=== PATIENT | female | born 1995 | race Caucasian/White ===

== ENCOUNTER 2024-03-19 22:31 | Emergency (ER) | payer OTHER, SELFPAY ==
--- NOTE | 2024-03-19 | ECG_ITS ---
Test Reason : chest pain Blood Pressure : / mmHG Vent. Rate : 120 BPM Atrial Rate : 120 BPM P-R Int : 168 ms QRS Dur : 076 ms QT Int : 292 ms P-R-T Axes : 061 062 -41 degrees QTc Int : 412 ms Sinus tachycardia Nonspecific T wave abnormality Abnormal ECG No previous ECGs available Referred By: Generic ED Physician Electronically Signed By:Francisco Holt
[2024-03-19 22:36] VITALS: BP 152/89; PULSE 127; RESP 18; TEMP 36.7; O2SAT 97; BMI 24.8
[2024-03-19 22:55] LABS: MANUAL DIFF FLAG NO
[2024-03-19 22:56] LABS: Basophils Absolute Auto 0.1 X10*3/uL (0.0-0.2); Basophils Percent Auto 0.7 % (0-2); Eosinophils Absolute Auto 0.2 X10*3/uL (0.0-0.4); Eosinophils Percent Auto 2.3 % (0-4); Hematocrit 38.5 % (37.0-47.0); Hemoglobin 13.5 g/dl (12.0-16.0); Imm Gran Abs Auto 0.02 X10*3/uL (0.00-0.03); Imm Gran Pct Auto 0.3 % (0.0-0.4); Lymphocytes Absolute Auto 2.8 X10*3/uL (1.2-4.9); Lymphocytes Percent Auto 39.6 % (20-40); Mean Corpuscular HGB Conc 35.1 g/dl (31.0-35.0); Mean Corpuscular Volume 85.6 fL (80.0-98.0); Mean Platelet Volume 8.4 fL (9.4-12.3); Monocytes Absolute Auto 0.7 X10*3/uL (0.1-1.2); Monocytes Percent Auto 9.4 % (2-11); Neutrophils Absolute Auto 3.4 x10*3/uL (2.0-8.3); Neutrophils Percent Auto 47.7 % (45-73); Platelet Count 277 X10*3/uL (160-400); Red Cell Distribution Width 11.9 % (11.0-16.0); White Blood Count 7.1 X10*3/uL (4.8-10.8)
[2024-03-19 23:11] LABS: Alanine Aminotransferase 12 U/L (0-31); Albumin Level 4.4 g/dL (3.5-5.0); Alkaline Phosphatase 59 U/L (39-117); Anion Gap 11 (12-20); Aspartate Amino Transferase 20 U/L (5-31); Bilirubin Total 0.3 mg/dL (0.0-1.0); Blood Urea Nitrogen 10 mg/dL (9-16); Calcium 9.8 mg/dL (8.4-10.2); Carbon Dioxide 26 mmol/L (22-29); Chloride 108 mmol/L (96-108); Creatinine Clr Calc Pharmacy 106.8; Estimated Glomerular Filt Rate > 60; Glucose Random 100 mg/dL (60-115); Potassium 4.1 mmol/L (3.3-5.1); Sodium 141 mmol/L (135-145)
[2024-03-19 23:15] LABS: Troponin-I High Sensitivity < 2.7 ng/L (<3.5-17.0)
--- NOTE | 2024-03-20 01:03 | ED.ARRPALP ---
HPI - Arrhythmia/Palpitations General Chief Complaint: Arrhythmia/Palpitations Stated Complaint: chest pain Time Seen by Provider: 03/20/24 01:01 Source: patient Mode of arrival: ambulatory Limitations: no limitations History of Present Illness ED Provider: roxana HPI narrative: Patient's history of hypersomnia and ADHD on Ritalin complaining of episodes of palpitation for last 3 days getting premature heartbeats in her role feel short of breath with that heart rate maximum was 122 no syncope patient has increased stress with anxiety felt short of breath on arrival patient's heart rate was in 90s sinus rhythm Related Data Allergies Allergy/AdvReac Type Severity Reaction Status Date / Time cat dander [cats] Allergy Itching Verified 03/19/24 22:37 Seasonal Allergies Allergy Itching Verified 03/19/24 22:37 Review of Systems Review of Systems: Yes all other systems are reviewed and are negative [facility] Social History Social History Smoked in Last 30 Days: No Use of substances other than those prescribed or required for medical reasons: No Advance Directives: No Advance Directives Information Provided: Yes Do you have a plan to hurt others: No Plan Patient : No Physical Exam Vital Signs: Vital Signs: Last Vital Signs Temp 97.6 F 03/20/24 02:19 Pulse 91 03/20/24 02:19 Resp 14 03/20/24 02:19 BP 127/83 03/20/24 02:19 Pulse Ox 98 03/20/24 02:19 O2 Del Method Room Air 03/20/24 02:19 BMI result Body Mass Index 24.8 Appearance: Alert. Oriented X3. No acute distress. Eyes: PERRLA, No Nystagmus ENT: Pharynx normal. Oral Mucosa moist Neck: Normal inspection. Neck supple. CVS: Normal heart rate and rhythm. Pulses normal. Respiratory: No respiratory distress. Equal air entry bilateral, no wheezing/rales/rhonchi Abdomen: Soft and nontender. Bowel sounds are present, no mass palpable, no CVA tenderness Skin: Skin warm and dry. Normal skin color. Normal skin turgor. Extremities: No lower extremity edema. No calf tenderness Neuro: Oriented X 3. No motor deficit. Medical Decision Making Medical Decision Making [facility] Narrative: Patient with premature beats with tachycardia heart rate ranging between 100 and 120 with no significant drop in blood pressure on standing on Ritalin with increased stress likely the cause of premature beats. EKG with sinus tachycardia with heart rate of 120 beats per minute Differential Diagnosis Differential Diagnoses: The differential diagnosis associated with the presentation includes PACs/premature beats/POTS Lab Data [facility] Lab Attestation statement: I reviewed the patient's lab results. 03/19/24 22:49 03/19/24 22:49 Labs: Lab Results 03/19/24 Range/Units 22:49 WBC 7.1 (4.8-10.8) X10*3/uL RBC 4.50 (4.20-5.50) X10*6/uL Hgb 13.5 (12.0-16.0) g/dl Hct 38.5 (37.0-47.0) % MCV 85.6 (80.0-98.0) fL MCH 30.0 (27.0-33.0) pg MCHC 35.1 H (31.0-35.0) g/dl RDW 11.9 (11.0-16.0) % Plt Count 277 (160-400) X10*3/uL MPV 8.4 L (9.4-12.3) fL Immature Gran % (Auto) 0.3 (0.0-0.4) % Neut % (Auto) 47.7 (45-73) % Lymph % (Auto) 39.6 (20-40) % [place] % (Auto) 9.4 (2-11) % Eos % (Auto) 2.3 (0-4) % Baso % (Auto) 0.7 (0-2) % Lymph # (Auto) 2.8 (1.2-4.9) X10*3/uL [place] # (Auto) 0.7 (0.1-1.2) X10*3/uL Eos # (Auto) 0.2 (0.0-0.4) X10*3/uL Baso # (Auto) 0.1 (0.0-0.2) X10*3/uL Abs Immat Gran (auto) 0.02 (0.00-0.03) X10*3/uL Absolute Neuts (auto) 3.4 (2.0-8.3) x10*3/uL Absolute Nucleated RBC 0.000 (0.0-0.012) X10*3/uL Nucleated RBC % (auto) 0.0 (0.0-0.2) /100WBC Sodium 141 (135-145) mmol/L Potassium 4.1 (3.3-5.1) mmol/L Chloride 108 (96-108) mmol/L Carbon Dioxide 26 (22-29) mmol/L Anion Gap 11 L (12-20) BUN 10 (9-16) mg/dL Creatinine 0.71 (0.5-1.4) mg/dL Estim Creat Clear Calc 106.8 Estimated GFR > 60 Random Glucose 100 (60-115) mg/dL Calcium 9.8 (8.4-10.2) mg/dL Total Bilirubin 0.3 (0.0-1.0) mg/dL AST 20 (5-31) U/L ALT 12 (0-31) U/L Alkaline Phosphatase 59 (39-117) U/L Troponin I High Sens < 2.7 (<3.5-17.0) ng/L Total Protein 7.0 (6.5-8.0) g/dL Albumin 4.4 (3.5-5.0) g/dL Independent Interpretation I performed an independent interpretation of an: EKG Interpretation: Sinus tachycardia with heart rate 120 beats per minute normal interval normal axis acute STT wave changes no acute ischemia Discharge Plan Discharge Clinical Impression: Sinus tachycardia, Atrial premature beats Patient Disposition: Home, Self-Care Instructions: Premature Atrial Contractions (ED), Tachycardia (ED) Additional Instructions: Drink plenty of fluids Follow up with physical therapy asst/PCP for Holter monitoring Avoid caffeine drinks Discussed case with your psychiatrist for the use of Ritalin when you have palpitations Referrals: Lars Ba MD [Physician] - 2 weeks Interventions: ED Discharge Assessment Last Done: 03/20/24 02:19 Discharge Date/Time: 03/20/24 02:20 Print Language: Japanese
[2024-03-20 01:45] VITALS: BP 114/73; BP 117/75; BP 127/83; PULSE 89; PULSE 91; PULSE 92
--- NOTE | 2024-03-20 01:46 | PC.NURSE ---
pt from home, a&ox4, respirations even and unlabored. pt reporting onset of palpitations and tachycardia starting Tuesday, pt reports it subsides and comes back throughout the day, often when she states she is sitting. pt reports chest pain when these palpitations occur. per provider order, orthos obtained at this time. vss.
[2024-03-20 02:19] VITALS: BP 127/83; PULSE 91; RESP 14; TEMP 36.4; O2SAT 98
== END 2024-03-20 02:20 | disposition home or self-care (01) ==
PROVIDERS: Emergency Provider Internal Medicine
DX: I49.9 Cardiac arrhythmia, unspecified (principal); R00.2 Palpitations; R00.0 Tachycardia, unspecified; I49.1 Atrial premature depolarization; Z79.899 Other long term (current) drug therapy
CPT/HCPCS: 36415; 80053; 84484; 85025; 93005; 99283; 99285

== ENCOUNTER → 2024-03-19 22:38 | Outpatient (BNV) | payer OTHER, SELFPAY | PROVIDERS: Emergency Provider Internal Medicine; Visit Provider Internal Medicine Cardiovascular Disease | DX: R94.31 Abnormal electrocardiogram [ECG] [EKG] (principal); R07.9 Chest pain, unspecified | CPT/HCPCS: 93010 ==

== ENCOUNTER 2024-03-23 01:06 | Emergency (ER) | payer OTHER, SELFPAY ==
--- NOTE | 2024-03-23 | ECG_ITS ---
Test Reason : SOB/DIZZINESS Blood Pressure : / mmHG Vent. Rate : 081 BPM Atrial Rate : 081 BPM P-R Int : 128 ms QRS Dur : 086 ms QT Int : 384 ms P-R-T Axes : 021 066 036 degrees QTc Int : 446 ms Normal sinus rhythm Normal ECG When compared with ECG of 19-MAR-2024 22:38, Nonspecific T wave abnormality has replaced inverted T waves in Inferior leads Nonspecific T wave abnormality no longer evident in Lateral leads Referred By: Generic ED Physician Electronically Signed By:Francisco Holt
--- NOTE | ~2024-03-23 | XR_ITS ---
EXAMINATION: XR CHEST CLINICAL INFORMATION: Cough and shortness of breath. COMPARISON: None available. TECHNIQUE: Frontal view of the chest was obtained. FINDINGS: No significant abnormality is noted involving the heart, lungs, mediastinum, bony thorax or soft tissues. XR/XR chest 1V IMPRESSION: Unremarkable examination. Electronically signed by: Pradeep De La Paz MD 03/23/2024 03:55 AM EDT RP
[2024-03-23 01:14] VITALS: BP 112/77; PULSE 80; RESP 16; TEMP 36.6; O2SAT 97; BMI 25.9
[2024-03-23 02:25] LABS: Influenza A PCR NEGATIVE (Negative); Influenza B PCR NEGATIVE (Negative); Resp Syncy Virus RNA Qual PCR NEGATIVE (Negative); SARS COV2 PCR INHOUSE NEGATIVE (Negative)
--- NOTE | 2024-03-23 02:27 | ED_ITS ---
HPI - General Adult General Chief complaint: Upper Respiratory Symptoms Stated complaint: SOB, spins, dry cough, hypersomnia 2 wk ago Time Seen by Provider: 03/23/24 01:52 Source: patient, family and EMS Mode of arrival: EMS Limitations: no limitations History of Present Illness ED Provider: DR. Vizcarra HPI narrative: 28-year-old female with history of idiopathic hypersomnia patient has been treated with xywav which is relatively new medication for the past 2 weeks with known side effect of the medicine [employer] depressant patient came in for evaluation of chest discomfort and shortness of breath. Related Data Allergies Allergy/AdvReac Type Severity Reaction Status Date / Time cat dander [cats] Allergy Itching Verified 03/23/24 01:16 Seasonal Allergies Allergy Itching Verified 03/23/24 01:16 Review of Systems 2 Review of Systems: All other systems are reviewed and are negative Constitutional: Reports as per HPI and Reports no additional constitutional complaints Eyes: Reports as per HPI and Reports no additional eye complaints Reports system reviewed and no additional complaints, except as documented Cardiovascular: Reports as per HPI and Reports no additional cardiovascular complaints Respiratory: Reports as per HPI and Reports no additional respiratory complaints Gastrointestinal: Reports as per HPI and Reports no additional gastrointestinal complaints Genitourinary: Reports no additional female genitourinary complaints Musculoskeletal: Reports no additional musculoskeletal complaints Skin/Breast: Reports system reviewed and no additional complaints, except as docu Psychiatric: Reports no additional psychiatric complaints Endocrine: Reports no additional endocrine complaints Hematologic/Lymphatic: Reports no additional hematologic/lymphatic complaints Allergic/Immunologic: Reports no additional allergic/immunologic complaints Reports system reviewed and no additional complaints, except as documented and Reports Abnormal speech present [facility] Social History Social History Advance Directives: No Advance Directives Information Provided: No Do you have a plan to hurt others: No Plan Physical Exam ED Vital Signs: Vital Signs - 24 hr 03/23/24 01:14 03/23/24 04:12 Temperature 98 F 98.1 F Pulse Rate 80 72 Respiratory Rate 16 15 Blood Pressure 112/77 101/60 Pulse Oximetry 97 97 Oxygen Delivery Method Room Air Room Air BMI result Body Mass Index 25.9 Vital signs have been reviewed and appear to be correct. Blood pressure elevated. Heart rate normal. Respiratory rate normal. Temperature normal. Oxygen saturation normal. Appearance: Alert. Oriented X3. No acute distress. Head: Normal external exam. Normocephalic. Atraumatic. No Wood signs noted. No raccoon eyes noted Eyes: PERRLA. EOMI. Conjunctiva and sclera normal. Eyelids normal. ENT: TM's Normal. Pharynx normal. Uvula midline. Moist mucous membranes. No trismus noted. No drooling noted. No muffled voice noted. Neck: Normal inspection. Neck supple. FROM. No adenopathy. Thyroid Normal. No meningeal signs. No neck mass noted. CVS: Normal heart rate and rhythm. Heart sound normal. No murmurs noted. Pulses normal throughout. Respiratory: No respiratory distress. Painless inspiration. Breath sounds normal. No wheezes/rales/rhonchi noted. Chest nontender. No accessory muscle usage noted or decreased air movement noted. Abdomen: Soft and nontender. Bowel sounds normal in all 4 quadrants. No distention noted. No organomegaly noted. No visible injury noted. Back: No CVA tenderness. Full range of motion noted. Skin: Skin warm and dry. Normal skin color. Normal skin turgor. No rashes/lesions/lacerations noted. Extremities: No lower extremity edema. Extremities exhibit normal range of motion. Extremities nontender. Neuro: Oriented X 3. Cranial nerve exam: II-XII are grossly intact No motor deficit. No sensory deficit. Reflexes normal. Course Reevaluation(s) Reevaluation #1: 28-year-old female came in for evaluation of shortness breath and chest discomfort, patient was evaluated in the emergency department 2 days ago for similar symptoms started on new medication for idiopathic hypersomnia that patient noticed after she started on those medication she started have all this side-effect. Instructed the patient to stop taking Xywav and discussed with her PCP for alternatives to manage her hypersomnia condition. Time: 05:38 Medical Decision Making Differential Diagnosis Differential Diagnoses: The differential diagnosis associated with the presentation includes (ACS, pneumonia, pleural effusion, pneumothorax,Xywav side effect,) Admission/Observation Consideration of admission/observation: Escalation of care including admission/observation considered Lab Data MDM Lab Attestation statement: I reviewed the patient's lab results. 03/23/24 02:33 03/23/24 02:33 Labs: Lab Results 10/25/24 10/25/24 Range/Units 01:32 02:33 WBC 5.9 (4.8-10.8) X10*3/uL RBC 4.29 (4.20-5.50) X10*6/uL Hgb 13.0 (12.0-16.0) g/dl Hct 36.8 L (37.0-47.0) % MCV 85.8 (80.0-98.0) fL MCH 30.3 (27.0-33.0) pg MCHC 35.3 H (31.0-35.0) g/dl RDW 12.2 (11.0-16.0) % Plt Count 266 (160-400) X10*3/uL MPV 8.3 L (9.4-12.3) fL Immature Gran % (Auto) 0.2 (0.0-0.4) % Neut % (Auto) 58.1 (45-73) % Lymph % (Auto) 28.5 (20-40) % [place] % (Auto) 10.8 (2-11) % Eos % (Auto) 1.9 (0-4) % Baso % (Auto) 0.5 (0-2) % Lymph # (Auto) 1.7 (1.2-4.9) X10*3/uL [place] # (Auto) 0.6 (0.1-1.2) X10*3/uL Eos # (Auto) 0.1 (0.0-0.4) X10*3/uL Baso # (Auto) 0.0 (0.0-0.2) X10*3/uL Abs Immat Gran (auto) 0.01 (0.00-0.03) X10*3/uL Absolute Neuts (auto) 3.5 (2.0-8.3) x10*3/uL Absolute Nucleated RBC 0.000 (0.0-0.012) X10*3/uL Nucleated RBC % (auto) 0.0 (0.0-0.2) /100WBC Sodium 145 (135-145) mmol/L Potassium 3.8 (3.3-5.1) mmol/L Chloride 110 H (96-108) mmol/L Carbon Dioxide 27 (22-29) mmol/L Anion Gap 12 (12-20) BUN 8 L (9-16) mg/dL Creatinine 0.71 (0.5-1.4) mg/dL Estim Creat Clear Calc 109.0 Estimated GFR > 60 Random Glucose 93 (60-115) mg/dL Calcium 9.3 (8.4-10.2) mg/dL Total Bilirubin 0.3 (0.0-1.0) mg/dL Direct Bilirubin 0.1 (0.0-0.5) mg/dL AST 20 (5-31) U/L ALT 11 (0-31) U/L Alkaline Phosphatase 56 (39-117) U/L Troponin I High Sens < 2.7 (<3.5-17.0) ng/L Total Protein 6.8 (6.5-8.0) g/dL Albumin 4.3 (3.5-5.0) g/dL Lipase 28 (8-78) U/L Influenza Type A (PCR) NEGATIVE (Negative) Influenza Type B (PCR) NEGATIVE (Negative) RSV RNA Qual (PCR) NEGATIVE (Negative) SARS-CoV-2 RNA (RT-PCR) NEGATIVE (Negative) Independent Interpretation I performed an independent interpretation of an: Plain X-Ray (Chest: No acute intrathoracic pathology.) Radiology Impression Discussion of test interpretation with radiology: I have reviewed the radiologist's reading. Discharge Plan Discharge Clinical Impression: Chest pain, Drug side effects Patient Disposition: Home, Self-Care Instructions: Adverse Drug Reaction (ED) Additional Instructions: Start taking Xywav and discuss with your primary physician alternative for the medication. Print Language: Estonian
[2024-03-23 02:38] LABS: MANUAL DIFF FLAG NO
[2024-03-23 02:39] LABS: Basophils Percent Auto 0.5 % (0-2); Eosinophils Absolute Auto 0.1 X10*3/uL (0.0-0.4); Eosinophils Percent Auto 1.9 % (0-4); Hematocrit 36.8 % (37.0-47.0); Imm Gran Abs Auto 0.01 X10*3/uL (0.00-0.03); Imm Gran Pct Auto 0.2 % (0.0-0.4); Lymphocytes Absolute Auto 1.7 X10*3/uL (1.2-4.9); Lymphocytes Percent Auto 28.5 % (20-40); Mean Corpuscular HGB Conc 35.3 g/dl (31.0-35.0); Mean Corpuscular Hemoglobin 30.3 pg (27.0-33.0); Mean Corpuscular Volume 85.8 fL (80.0-98.0); Mean Platelet Volume 8.3 fL (9.4-12.3); Monocytes Absolute Auto 0.6 X10*3/uL (0.1-1.2); Monocytes Percent Auto 10.8 % (2-11); Neutrophils Absolute Auto 3.5 x10*3/uL (2.0-8.3); Neutrophils Percent Auto 58.1 % (45-73); Platelet Count 266 X10*3/uL (160-400); Red Blood Count 4.29 X10*6/uL (4.20-5.50); Red Cell Distribution Width 12.2 % (11.0-16.0); White Blood Count 5.9 X10*3/uL (4.8-10.8)
[2024-03-23 02:57] LABS: Alanine Aminotransferase 11 U/L (0-31); Albumin Level 4.3 g/dL (3.5-5.0); Alkaline Phosphatase 56 U/L (39-117); Anion Gap 12 (12-20); Aspartate Amino Transferase 20 U/L (5-31); Bilirubin Direct 0.1 mg/dL (0.0-0.5); Bilirubin Total 0.3 mg/dL (0.0-1.0); Blood Urea Nitrogen 8 mg/dL (9-16); Calcium 9.3 mg/dL (8.4-10.2); Carbon Dioxide 27 mmol/L (22-29); Chloride 110 mmol/L (96-108); Estimated Glomerular Filt Rate > 60; Glucose Random 93 mg/dL (60-115); Lipase 28 U/L (8-78); Potassium 3.8 mmol/L (3.3-5.1); Sodium 145 mmol/L (135-145); Total Protein 6.8 g/dL (6.5-8.0)
[2024-03-23 03:06] LABS: Troponin-I High Sensitivity < 2.7 ng/L (<3.5-17.0)
[2024-03-23 04:12] VITALS: BP 101/60; PULSE 72; RESP 15; TEMP 36.7; O2SAT 97
[2024-03-23 05:45] VITALS: BP 101/60; PULSE 72; RESP 15; TEMP 36.7; O2SAT 97
== END 2024-03-23 05:46 | disposition home or self-care (01) ==
PROVIDERS: Emergency Provider Emergency Medicine
DX: R07.89 Other chest pain (principal); R06.02 Shortness of breath; R05.9 Cough, unspecified; G47.10 Hypersomnia, unspecified; Z03.818 Encounter for observation for suspected exposure to other biological agents ruled out; Z79.899 Other long term (current) drug therapy
CPT/HCPCS: 0241U; 36415; 71045; 80048; 80076; 83690; 84484; 85025; 93005; 99284; 99285

== ENCOUNTER → 2024-03-23 01:22 | Outpatient (BNV) | payer OTHER, SELFPAY | PROVIDERS: Emergency Provider Emergency Medicine; Visit Provider Internal Medicine Cardiovascular Disease | DX: R42 Dizziness and giddiness (principal); R06.02 Shortness of breath | CPT/HCPCS: 93010 ==

== ENCOUNTER → 2024-06-27 14:40 | Outpatient (BNVA) | payer OTHER, SELFPAY | PROVIDERS: Visit Provider Internal Medicine Cardiovascular Disease | DX: R00.0 Tachycardia, unspecified (principal) | CPT/HCPCS: 93005 ==

== ENCOUNTER → 2024-07-09 14:53 | Outpatient (BNV) | payer OTHER, SELFPAY | PROVIDERS: Visit Provider Internal Medicine Cardiovascular Disease | DX: R00.0 Tachycardia, unspecified (principal) | CPT/HCPCS: 93244 ==

== ENCOUNTER → 2024-07-09 15:02 | Outpatient (REF) | payer OTHER, SELFPAY ==
--- NOTE | 2024-07-09 14:53 | HM_ITS ---
Conclusion: 1. Patient was monitored for total period 3 days 2. Baseline was normal sinus rhythm with average heart of 75 beats per minute 3. There were no significant pauses or arrhythmias noted 4. Patient marked the counter 7 times, correlating with sinus rhythm MTDD
--- OUTSIDE RECORDS SUMMARY | 2024-07-09 16:13 | XMS_ITS | Clinical Summary ---
Author Organization [facility] Address [address] [place] [address] [place] [address] Phone Care Team Providers Care Clinical Registered Nurse Name Role Phone Chey Harman MD Primary Care Provider [phone] Allergies No known active allergies Medications acyclovir (ZOVIRAX) 400 mg tablet Take 1 tablet (400 mg total) by mouth 2 (two) times a day. 8 Active levonorgestreL (Mirena) 21 mcg/24 hours (8 yrs) 52 mg IUD Activ e lurasidone (Latuda) 40 mg tablet Take 1 tablet (40 mg total) by mouth 1 (one) time each day. Active methylphenidate (Ritalin) 5 mg tablet Take 1 tablet (5 mg total) by mouth 2 (two) times a day. Active sodium chloride 1 gram tablet Take 1 tablet every day by miscell. route for 30 days. 3 Active traZODone (DESYREL) 100 mg tablet TAKE 1 TABLET BY MOUTH EVERY DAY AT BEDTIME FOR 90 DAYS 1 Active fluticasone propionate (Flonase Allergy Relief) 50 mcg/actuation nasal spray [place] 1 spray every day by intranasal route for 30 days. 4 Active omeprazole (PriLOSEC) [address] capsule Take 1 capsule (40 mg total) by mouth 1 (one) time each day. 3 Active ondansetron (Zofran) 4 mg tablet Take 1 tablet (4 mg total) by mouth. 4 Active cyclobenzaprine (FLEXERIL) 10 mg tabletIndicatio ns:Chronic pain of multiple joints,Myalgia, Chronic bilateral low back pain without sciatica Take 1 tablet (10 mg total) by mouth at bedtime. 90 each 4 Active gabapentin (NEURONTIN) 300 mg capsuleIndicati ons:Chronic pain of multiple joints,Myalgia, Chronic bilateral low back pain without sciatica TAKE 1 CAPSULE BY MOUTH EVERY MORNING AFTER BREAKFAST , AND 1 CAPSULE AFTER LUNCH, AND 2 CAPSULES AT BEDTIME 360 capsule 4 Active Active Problems Problem Noted Date Diagnosed Date Chronic pain of multiple joints 01/05/2023 Assessment & Plan (11/03/2023 10:19 AM EDT): In December 2022, Ms. Bro reported all over joint pains for the last two years with periodic swelling in hands. She reports back pain but manageable. No synovitis on exam, mild SI joint tenderness noted. Recent labs November 2022 reported RF/CCP negative. ESR/CRP normal and SONYA and multiplex negative. She has no psoriasis, IBD, uveitis history. I discussed with no significant swelling and normal inflammatory markers, negative RF/CCP, inflammatory arthritis/RA is less likely. She has some hypermobility in elbows, discussed to continue cautious use of NSAIDs/Tylenol as needed, ROM exercises, braces. Discussed SI joint x-ray, she will let us know if back pain worsening. ESR/CRP were normal, ank spon might be less likely. Due to persistent symptoms discussed repeating labs in 4-6 months and she agreed. Labs on April 12, 2023- SONYA negative. SONYA multiplex negative. Rheumatoid factor, CCP antibody normal. ESR, CRP, CK normal. Labs are unremarkable for inflammatory arthritis and autoimmune diseases. Joint symptoms present but stable. No synovitis on exam. Previous labs in November and March 2023 reported normal ESR/CRP and negative RF/CCP. With no synovitis and normal labs inflammatory thrice may be less likely. She is currently taking gabapentin and cyclobenzaprine for possibly myofascial pain/fibromyalgia and has noted some improvement. Symptoms stable at present. To continue gabapentin daily and cyclobenzaprine as needed. Side effects provide discussed. Advised to continue exercises and cautious use of NSAIDs/Tylenol as needed. Please move to [place] next month, will let us know where to send records. Assessment & Plan (04/26/2023 6:06 PM EST): In December 2022, Ms. Bro reported all over joint pains for the last two years with periodic swelling in hands. She reports back pain but manageable. No synovitis on exam, mild SI joint tenderness noted. Recent labs November 2022 reported RF/CCP negative. ESR/CRP normal and SONYA and multiplex negative. She has no psoriasis, IBD, uveitis history. I discussed with no significant swelling and normal inflammatory markers, negative RF/CCP, inflammatory arthritis/RA is less likely. She has some hypermobility in elbows, discussed to continue cautious use of NSAIDs/Tylenol as needed, ROM exercises, braces. Discussed SI joint x-ray, she will let us know if back pain worsening. ESR/CRP were normal, ank spon might be less likely. Due to persistent symptoms discussed repeating labs in 4-6 months and she agreed. Labs on April 12, 2023- SONYA negative. SONYA multiplex negative. Rheumatoid factor, CCP antibody normal. ESR, CRP, CK normal. Labs are unremarkable for inflammatory arthritis and autoimmune diseases. Advised to continue exercises and cautious use of Tylenol as needed. If joint symptoms worsen, advised to contact our office for reevaluation. Continue follow with PCP. Assessment & Plan (01/05/2023 7:57 AM EDT): Ms. Bro reports all over joint pains for the last two years with periodic swelling in hands. She reports back pain but manageable. No synovitis on exam, mild SI joint tenderness noted. Recent labs November 2022 reported RF/CCP negative. ESR/CRP normal and SONYA and multiplex negative. She has no psoriasis, IBD, uveitis history. I discussed with no significant swelling and normal inflammatory markers, negative RF/CCP, inflammatory arthritis/RA is less likely. She has some hypermobility in elbows, discussed to continue cautious use of NSAIDs/Tylenol as needed, ROM exercises, braces. Discussed SI joint x-ray, she will let us know if back pain worsening. ESR/CRP were normal, ank spon might be less likely. Due to persistent symptoms discussed repeating labs in 4-6 months and she agreed. Myalgia 01/05/2023 Assessment & Plan (11/03/2023 10:18 AM EDT): In December 2022, Ms. Bro reported ongoing muscle aches all over body. She reports fatigue. No muscle weakness noted on exam. November 2022 labs reported SONYA and multiplex negative, including NIKA-1 ab. ESR/CRP normal. She reports some involuntary jerking of hands, discussed if persistent can consider neuro consult, continue PCP Follow up. She does have tender points across back and arms, discussed possible fibromyalgia. She tried gabapentin previously and reports interaction with depression/anxiety medications. Discussed light exercises and cautious use of NSAIDs/Tylenol as needed. Labs on April 12, 2023- SONYA negative. SONYA multiplex negative. Rheumatoid factor, CCP antibody normal. ESR, CRP, CK normal. She is currently taking gabapentin. Cyclobenzaprine as needed. Symptoms have improved with the gabapentin, currently stable. Myofascial pain certainly possible. Continue light exercises. Plans to move to [place] next month, will let us know where to send records. Gabapentin and cyclobenzaprine refilled today. Side effects precaution discussed. Assessment & Plan (04/26/2023 8:35 AM EST): In December 2022, Ms. Bro reported ongoing muscle aches all over body. She reports fatigue. No muscle weakness noted on exam. November 2022 labs reported SONYA and multiplex negative, including NIKA-1 ab. ESR/CRP normal. She reports some involuntary jerking of hands, discussed if persistent can consider neuro consult, continue PCP Follow up. She does have tender points across back and arms, discussed possible fibromyalgia. She tried gabapentin previously and reports interaction with depression/anxiety medications. Discussed light exercises and cautious use of NSAIDs/Tylenol as needed. Labs on April 12, 2023- SONYA negative. SONYA multiplex negative. Rheumatoid factor, CCP antibody normal. ESR, CRP, CK normal. She is currently taking gabapentin. Symptoms have improved. Myofascial pain certainly possible. Can use cyclobenzaprine if needed. Assessment & Plan (01/05/2023 8:14 AM EDT): Ms. rBo reports ongoing muscle aches all over body. She reports fatigue. No muscle weakness noted on exam. November 2022 labs reported SONYA and multiplex negative, including NIKA-1 ab. ESR/CRP normal. She reports some involuntary jerking of hands, discussed if persistent can consider neuro consult, continue PCP Follow up. She does have tender points across back and arms, discussed possible fibromyalgia. She tried gabapentin previously and reports interaction with depression/anxiety medications. Will repeat labs in 4 months. Discussed light exercises and cautious use of NSAIDs/Tylenol as needed. Chronic bilateral low back pain without sciatica 01/05/2023 Assessment & Plan (11/03/2023 10:17 AM EDT): In December 2022, Ms. Bro reported back pain since middle school, questionable scoliosis. Back pain manageable at present. On exam mild SI joint tenderness noted. Recent ESR/CRP were normal. Discussed x-rays if worsening, she will let us know. Continue ROM exercises and cautious use of NSAIDs as needed. Back symptoms present but stable. Currently takes cyclobenzaprine as needed. Plans to move to [place] next month, will let us know where to send records. Continue ROM exercises and cautious use of NSAIDs as needed. Assessment & Plan (04/26/2023 7:57 AM EST): In December 2022, Ms. Bro reported back pain since middle school, questionable scoliosis. Back pain manageable at present. On exam mild SI joint tenderness noted. Recent ESR/CRP were normal. Discussed x-rays if worsening, she will let us know. Continue ROM exercises and cautious use of NSAIDs as needed. Assessment & Plan (01/05/2023 8:00 AM EDT): Ms. Bro reports back pain since middle school, questionable scoliosis. Back pain manageable at present. On exam mild SI joint tenderness noted. Recent ESR/CRP were normal. Discussed x-rays if worsening, she will let us know. Continue ROM exercises and cautious use of NSAIDs as needed. Skin rash 01/05/2023 Assessment & Plan (11/03/2023 10:19 AM EDT): In December 2022, Ms. Bro reported on and off skin rash that is itchy, flat that comes over arms, legs, back, shoulders. Symptoms usually resolve quickly so she has not seen derm. No typical malar, discoid rash. No psoriasis. No active rashes present. November 2022 labs SONYA and multiplex negative, ESR/CRP normal. Advise close observation and repeat labs in 3 to 4 months. Labs on April 12, 2023- SONYA negative. SONYA multiplex negative. Rheumatoid factor, CCP antibody normal. ESR, CRP, CK normal. No active skin rashes present. Continue close observation. Discussed if skin rashes reappear to take pictures, can consider derm consult if needed. Assessment & Plan (04/26/2023 6:07 PM EST): In December 2022, Ms. Bro reported on and off skin rash that is itchy, flat that comes over arms, legs, back, shoulders. Symptoms usually resolve quickly so she has not seen derm. No typical malar, discoid rash. No psoriasis. No active rashes present. November 2022 labs SONYA and multiplex negative, ESR/CRP normal. Advise close observation and repeat labs in 3 to 4 months. Labs on April 12, 2023- SONYA negative. SONYA multiplex negative. Rheumatoid factor, CCP antibody normal. ESR, CRP, CK normal. No active skin rashes present. Continue close observation. Discussed if skin rashes reappear to take pictures, can consider derm consult if needed. Assessment & Plan (01/05/2023 8:04 AM EDT): Ms. Bro reports on and off skin rash that is itchy, flat that comes over arms, legs, back, shoulders. Symptoms usually resolve quickly so she has not seen derm. No typical malar, discoid rash. No psoriasis. No active rashes at present. November 2022 labs SONYA and multiplex negative, ESR/CRP normal. Discussed if skin rashes reappear to take pictures, can consider derm consult if needed. Fatigue 01/04/2023 Assessment & Plan (11/03/2023 10:19 AM EDT): In December 2022, Ms. Bro reported persistent fatigue. She also has muscle aches, joint pains. No muscle weakness or synovitis on exam. November 2022 labs reported SONYA and multiplex negative, ESR/CRP normal. Vit D was mildly low, taking supplementation. Etiology of fatigue unclear. Reports at times elevated HR and light-headedness, discussed continue PCP follow up and possible cardio consult. Labs on April 12, 2023- SONYA negative. SONYA multiplex negative. Rheumatoid factor, CCP antibody normal. ESR, CRP, CK normal. Labs are unremarkable for autoimmune diseases. Reports previously thyroid was normal. Symptoms stable. Continue sleep hygiene. Continue follow with PCP. Assessment & Plan (04/26/2023 6:07 PM EST): In December 2022, Ms. Bro reported persistent fatigue. She also has muscle aches, joint pains. No muscle weakness or synovitis on exam. November 2022 labs reported SONYA and multiplex negative, ESR/CRP normal. Vit D was mildly low, taking supplementation. Etiology of fatigue unclear. Reports at times elevated HR and light-headedness, discussed continue PCP follow up and possible cardio consult. Labs on April 12, 2023- SONYA negative. SONYA multiplex negative. Rheumatoid factor, CCP antibody normal. ESR, CRP, CK normal. Labs are unremarkable for autoimmune diseases. Continue follow with PCP. Assessment & Plan (01/05/2023 8:12 AM EDT): Ms. Bro reports persistent fatigue. She also has muscle aches, joint pains. No muscle weakness or synovitis on exam. November 2022 labs reported SONYA and multiplex negative, ESR/CRP normal. Vit D was mildly low, taking supplementation. Etiology of fatigue unclear. Reports at times elevated HR and light-headedness, discussed continue PCP follow up and possible cardio consult. We will repeat labs in 4 months. Umbilical pain 07/08/2022 01/03/2023 Overview (01/03/2023): Last Assessment & Plan: I suspect that hernia, however it also could be a skin infection that took a while to resolve. The hernia found on physical exam today. Will order CT scan abdomen and pelvis for further evaluation. We discussed potential surgery along with some of the risks and benefits. Herpes simplex type 1 infection 05/08/2021 01/03/2023 Insomnia 05/08/2021 01/03/2023 Anxiety 10/01/2020 01/03/2023 Bipolar I disorder 10/01/2020 01/03/2023 Bilateral flank pain 05/05/2017 01/03/2023 Urinary incontinence in female 12/03/2016 0 01/03/[address] 11/11/2016 01/03/2023 Overview (01/03/2023): Placed 11/11/16 Low serum vitamin D 12/16/2014 01/03/2023 Overview (01/03/2023): 12/16/14: Vit D is 22 on 12/11/14. Labwork requested by and to be reviewed by her psychiatrist. [facility] Generalized anxiety disorder 08/29/201411/2022 Encounters Date Type Department Care Team Description 06/14/2024 [facility]phone [facility] [phone] [place] [address] [place], [place] from Last 3 Months Medical History Medical History Date Comments Adhd Anxiety Depressed bipolar disorder (CMS/HCC) OCD (obsessive compulsive disorder) Family History Medical History Relation Name Comments Anxiety disorder Father Depression Father Skin cancer Father Lupus Maternal Grandmother Brain cancer Mother Breast cancer Paternal Grandmother Relation Name Status Comments Father Maternal Grandmother Mother Paternal Grandmother Social History Tobacco Use Types Packs/Day Years Used Date Smoking Tobacco: Former Cigarettes Smokeless Tobacco: Never Tobacco Cessation:Counseling Given: Not Answered Housing Instability Answer Date Recorde d Are you worried that in the next 2 months you may not have stable housing? No 11/03/2023 Food Access & Nutrition Answer Date Rec orded Do you have access to a vari ety of food including fruits and vegetables? Yes 11/03/2023 Access to Healthcare Answer Date Record ed Within the last 3 months, ho roque many times did you visit the emergency department for your medical care? 0 04/26/2023 Health Literacy Answer Date Recorded How often do you need to hav e someone help you when you read instructions, pamphlets, or other written material from your doctor or pharmacy? Never 11/03/2023 Caregiver: How often do you need to have someone help you when you read instructions, pamphlets, or other written material from your doctor or pharmacy? Not on file 11/03/2023 Financial Risk Answer Date Recorded How hard is it for you to pa y for the very basics like food, housing, medical care, and air conditioning / heating? Not very hard 11/03/2023 Transportation Answer Date Recorded Has the lack of transportati on kept you from meetings, work, or from getting things needed for daily living? No Has the lack of transportati on kept you from medical appointments or from getting medications? No 11/03/2023 Social Isolation Answer Date Recorded How often do you feel lonely or isolated from th ose around you? Never 11/03/2023 Food Risk Answer Date Recorded Within the past 12 months we worried whether our food would run out before we got money to buy more. Never true 11/03/2023 Within the past 12 months th e food we bought just didn't last and we didn't have money to get more. Never true 11/03/2023 Comments Unknown Sex and Gender Information Value Date Recorded Sex Assigned at Not on file Legal Sex Female 1:57 PM EDT Gender Identity Not on file Sexual Orientation Not on file Obstetrics History Last Filed Vital Signs Vital Sign Reading Time Taken Comments Blood Pressure 101/68 11/03/2023 8:13 AM EDT Pulse 75 11/03/2023 8:13 AM EDT Temperature 36.7 ??C (98.1 ??F) 11/03/2023 8:13 AM ED T Respiratory Rate 16 04/26/2023 8:07 AM EST Oxygen Saturation 96% 11/03/2023 8:13 AM EDT Inhaled Oxygen Concentration - - Weight 67 kg (147 lb 11.2 oz) 11/03/2023 8:13 AM EDT Height 160 cm (5' 3 ) 11/03/2023 8:13 AM EDT Body Mass Index 26.16 11/03/2023 8:13 AM EDT Plan of Treatment Health Maintenance Due Date Last Done Comments Pneumococcal Vaccine: Pediatrics (0 to 5 Years) and At-Risk Patients (6 to 64 Years) (1 of 2 - PCV) 2015 Hepatitis A Vaccines (2 of 2 - 2-dose series) 10/02/2015 04/03/2015 Meningococcal B Vacine (2 of 2 - Trumenba SCDM 2-dose series) 10/11/2016 04/13/2016 Depression Screening 12/06/2021 HIV Screening 12/06/2021 Hepatitis C Screening 12/06/2021 COVID-19 Vaccine ( season) 2024 06/11/2021, 11/21/2020, 10/24/2020 Influenza Vaccine (#1) 2024 06/11/2021, 2015 Cervical Cancer Screening: Pap Smear 09/04/2024 09/04/2021 Social Influencers of Health Screening 11/02/2024 11/03/2023 DTaP,Tdap,and Td Vaccines (6 - Td or Tdap) 10/07/2030 10/07/2020, 02/15/2008, 01/05/2006, Additional history exists HIB Vaccines Aged Out 11/27/2004 No longer eligi ble based on patient's age to complete this topic IPV Vaccines Completed 04/21/2005, 01/30, 11/27/2004 MMR Vaccines Completed 04/21/2005, 11/27/2004 Varicella Vaccines Completed 01/05/2006, 02/26/2005 Hepatitis B Vaccines Completed 03/08/2006, 01/05/2006, 02/26/2005 Meningococcal ACWY Vaccine Completed 04/03/2015, HPV Vaccines Completed 04/13/2016, 09/2014, 10/31/2012 RSV Immunization Patients Under 20 months Aged Out No longer eligible based on patient's age to complete this topic Insurance [employer] Care Teams Clinical Registered Nurse Relationship Specialty Start Date End Date Chey Harman MD [address] [facility] [address] [place] [address] PCP - General Internal Medicine 12/29/22
--- OUTSIDE RECORDS SUMMARY | 2024-07-09 16:13 | XMS_ITS | Encounter Summary ---
Author Organization [facility] Address [address] [place] [address] Care Team Providers Care Rehabilitation Specialist Name Role Phone Chey Harman MD Primary Care Provider [phone] Encounter Details Date Type Department Care Team (Late st Contact Info) Description 06/14/2024 Telephone [facility]ology Center [address] [phone] [place] [address] [place], [place] Social History Tobacco Use Types Packs/Day Years Used Date Smoking Tobacco: Former Cigarettes Smokeless Tobacco: Never Housing Instability Answer Date Recorde d Are you worried that in the next 2 months you may not have stable housing? No 11/03/2023 Food Access & Nutrition Answer Date Rec orded Do you have access to a vari ety of food including fruits and vegetables? Yes 11/03/2023 Access to Healthcare Answer Date Record ed Within the last 3 months, ho w many times did you visit the emergency [...] on file Sexual Orientation Not on file documented as of this encounter Progress Notes * Taylor De La Fuente NP - 06/14/2024 11:38 AM EST Referral placed to [facility] per patient request, thanks. * Lorelei Hoskins MA - 06/14/2024 11:12 AM EST Pt [place] and needs a referral to her new negative assembler. I have the information documented in this encounter Plan of Treatment Not on file documented as of this encounter Visit Diagnoses Not on filedocumented in this encounter Care Teams Rehabilitation Specialist Relationship Specialty Start Date End Date Chey Harman MD [address] [place] [address] PCP - General Internal Medicine 12/29/22 documented as of this encounter
== END ==
LOC: HO.CARD 15:02
PROVIDERS: Visit Provider Internal Medicine Cardiovascular Disease
DX: R00.0 Tachycardia, unspecified (principal); I49.1 Atrial premature depolarization
CPT/HCPCS: 93242

== ENCOUNTER 2024-08-28 13:05 | Outpatient (AMB) | payer OTHER, SELFPAY ==
--- NOTE | 2024-08-28 13:09 | A.OFFPC_ITS ---
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 Is last menstrual period known: No (just took the IUD out no menstrual yet) Post menopausal: No Patient : No Allergies cat dander [cats] Allergy (Verified 08/28/24 13:37) Itching Seasonal Allergies Allergy (Verified 08/28/24 13:37) Itching Medication List - Last Reconciled 08/28/24 by Fuentes Mitchell CNP comp.stocking,thigh,long,small As directed cyclobenzaprine 5 mg PO TID PRN gabapentin 400 mg PO ONCE lamotrigine (Lamictal) 25 mg PO DAILY levonorgestrel-ethinyl estrad 0.1-20 mg-mcg 1 tab PO DAILY methylphenidate HCl (Ritalin) 5 mg PO DAILY methylphenidate HCl ER (Concerta) 27 mg PO DAILY metoprolol young-hydrochlorothiaz 25-12.5 mg tabs PO naltrexone 1 mg PO Tobacco use date assessed: 08/28/24 Dental Screening Dental Screen Date: 08/28/24 Did you have a dental visit in the last 12 months?: No Did you have a dental problem in the last 6 months where you did not have access to dental care?: No Was dental information given to patient?: Yes HPI HPI Comments History of Present Illness Details 29-year-old female presents to critical access hospital care. She relocated from [place] to [facility] in 12/2023. She was evaluated and treated at [facility] on 03/20/2024 and 03/23/2024 for shortness of breath and chest discomfort. Prior PCP? - [place], [place] Last office visit/CPE - 02/2024 Last labs: - 03/23/2024 at [facility] Acute issue(s) - Reports constant nontraumatic left an d right sided ribs pain since 04/2024. Currently goes to [facility] for PT. - Reports nontraumatic pain to multiple ankles, elbows, shoulders, wrists, knees for the past 13 years. 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 She was followed by a nurse practitioner in [place]. - Urinary incontinence. She is incontine nce of urine almost every day and has been ongoing for 10 years. She was followed by a urologist in [place], [place]. She was on a medication that was discontinued due adverse reaction of dysuria. 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 Followed by [facility] sleep medicine. - Dizziness: She reports intermittent d izziness. Her former PCP questioned POTS. She is on metoprol young-hydrochlorothiazide 25-12.5 mg daily. - Borderline personality disorder: She i s on lamotrigine 25 mg daily. She notes that she has been tapering off the medication due to stable mood. Past Medical History - Palpitations, sinus tachycardia, acid reflux, IBS, headache, incontinence, fibromyalgia, imbalance, brain fog, memory loss, sinusitis, astigmatism, myopia Surgical History - None Family History - Dad: ADHD, anxiety, depression - MGM: Heart failure, pacemaker Social History - Former smoker, quit 4 years ago. Does not vape. History of vaping, quit 2 years ago. Denies recreational drug use - Has been making healthy dietary choice s. Exercises routinely. Generally sleep well Health maintenance - Last eye exam was 06/13/2024 at [facility]. She will sign a release for her PCP to obtain her ophthalmology record - Last dental visit was a years ago; enc ouraged to schedule an appointment with his dentist for routine dental care - Last Tdap was in 10/07/2020 - She is up-to-date on the flu vaccine - Last pap smear test was a year ago nae L[facility]pez Gynecology: [facility] Diet[facility] Medical History (Updated 08/28/24 @ 14:29 by Fuentes Mitchell CNP) Imbalance Memory loss Headache Incontinence Acid reflux IBS (irritable bowel syndrome) Back disorder Joint pain History of palpitations Sinusitis Family History Maternal Grandmother Pacemaker Heart failure Father ADHD Anxiety Depression Social History Household Members: Spouse Housing: Apartment Alcohol intake: never Patient Tobacco Use Status: Never used Tobacco e-Cigarette/Vaping Use: Never Used service: No Current occupational status: employed 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 1. Little interest or pleasure in doing things: several days 2. Feeling down, depressed, or hopeless: several days 3. Trouble falling or staying asleep, or sleeping too much: more than half the days 4. Feeling tired or having little energy: nearly every day 5. Poor appetite or overeating: more than half the days 6. Feeling bad about yourself - or that you are a failure or have let yourself or your family down: not at all 7. Trouble concentrating on things, such as reading the newspaper or watching television: more than half the days 8. Moving or speaking so slowly that other people could have noticed. Or the opposite - being so fidgety or restless that you have been moving around a lot more than usual: more than half the days 9. Thoughts that you would be better off or of hurting yourself in some way: not at all Total score: 13 Depression Screening Interpretation: Positive Depression Screening Done: Yes 23409 - PHQ-9 Billing: Yes Source: Developed by Drs. Kaushal Fuller, Matilde Hairston, James Webster and colleagues, with an educational casie from [employer]. Thrive Questionnaire Date Thrive assessed: 08/28/24 I am a: Patient What is your living situation today?: I have a steady place to live Within the past 12 months, did the food you bought not last and you didn't have the money to get more?: Never true Within the past 12 months, did you worry whether your food would run out before you got money to buy more?: Sometimes True Do you have trouble paying for medicines?: Yes Do you have trouble getting transportation to medical appointments?: No Do you have trouble paying your heating and electricity bill?: No Do you have trouble taking care of your child, family member or friend?: No Do you have trouble with day-to-day activities such as bathing, preparing meals, shopping, managing finances, etc.?: Yes Are you currently unemployed and looking for a job?: No Are you interested in more education?: No Please select the resources that you would like help with: Paying for medicine Currently or been in a relationship where the following occur: No concerns reported THRIVE Score: 1 AUDIT C Alcohol Use Questionnaire (AUDIT-C) 1. How often do you have a drink containing alcohol?: Never Total Score: 0 Score Reviewed/Action Taken: Yes BREANNA-7 AMB Questionnaire BREANNA-7 Date BREANNA - 7 assessed: 08/28/24 Feeling nervous, anxious, or on edge: 1 = Several days Not being able to stop or control worryin = Several days Worrying too much about different things: 2 = More than half the days Trouble relaxin = More than half the days Being so restless that it is hard to sit still: 2 = More than half the days Becoming easily annoyed or irritable: 1 = Several days Feeling afraid as if something awful might happen: 2 = More than half the days Total BREANNA-7 score (0-4 normal; 5-9 mild; 10-14 moderate; 15-21 severe): 11 Source: Developed by Drs. Kaushal Fuller, Matilde Hairston, James Webster and colleagues, with an educational casie from [employer]. BREANNA-7 Assessment Billing BREANNA-7 Assessment Tool: BREANNA-7 Assessment 69165 Review of Systems Const Details: Const Denies chills, Denies fatigue, Denies fever(s), Denies headache(s) and Denies weakness ENT Denies dizziness and Denies headache(s) Card Denies chest pain, Denies lightheadedness, Denies dyspnea and Denies other (Palpitations) Resp Denies cough, Denies dyspnea, Denies wheezing and Denies other ( shortness of breath) GI Denies abdominal pain, Denies melena, Denies hematochezia, Denies change in bowel habits, Denies dyspepsia and Denies nausea Reports urinary incontinence, Denies hematuria and Denies dysuria Musc Reports as per HPI Skin/Breast Denies rash, Denies unusual bruising and Denies wounds Neuro Denies abnormal gait, Denies dizziness, Denies headache(s), Denies memory loss, Denies numbness, Denies Sensory deficit (Neuro), Denies tingling and Denies weakness Psych Denies anxiety, Denies depression, Denies memory loss Endo Denies cold intolerance, Denies fatigue, Denies heat intolerance, Denies polydipsia and Denies polyuria Aller/Immun Denies wheezing Physical exam (Primary Care) Vital Signs: Last Vital Signs Temp 98.1 F 08/28/24 13:24 Pulse 82 08/28/24 13:24 Resp 16 08/28/24 13:24 BP 119/68 08/28/24 13:24 Pulse Ox 99 08/28/24 13:24 Oxygen Delivery Method Room Air 08/28/24 13:24 BMI result Body Mass Index 23.4 Tobacco/Smoking Status: Tobacco use Status Tobacco use date assessed 08/28/24 08/28/24 13:24 Patient Tobacco Use Status Never used Tobacco 08/28/24 13:11 e-Cigarette/Vaping Use Never Used 08/28/24 13:24 PHQ-9: PHQ-9 Score PHQ-9: Total score 13 08/28/24 15:16 Depression Screening Interpretation: Positive Thrive Assessment: Date of Thrive Assessment Date Thrive assessed 08/28/24 08/28/24 13:11 Currently or been in a relationship where the following occur: No concerns reported Const Other: General: no acute distress and well developed Nutritional Appearance: well nourished Orientation/consciousness: patient oriented x3 HENMT Head: Yes normocephalic and Yes atraumatic Eyes General: appearance normal, both eyes and all related structures Pupils: Equal, round and reactive pupils present EOM: EOMs intact bilaterally Resp Effort & Inspection: normal respiratory effort Auscultation: clear to auscultation bilaterally Cardio Rate: regular rate Rhythm: regular rhythm Heart sounds: S1 normal heart sound present, S2 normal heart sound present, no gallops, no murmurs and no rubs GI Palpation (GI): No Abdominal aortic bruit present, Soft to palpation, nontender, No hepatosplenomegaly present and No Rebound tenderness present Auscultation: normal bowel sounds General: Yes no CVA tenderness Back/Spine/Pelvis Back: no CVA tenderness Cervical Spine: cervical ROM normal and No Cervical spine tenderness Thoracic/Lumbar Spine: thoraco-lumbar ROM normal, No pain with thoraco-lumbar ROM, No thoracic spinal tenderness and No lumbar spinal tenderness Ribs Tender, bony protrusions to the left and right ribs, no edema, erythema noted Extrem General: Yes normal to inspection, No edema and No calf tenderness Skin General: warm and dry. Normal skin color. Normal skin turgor Lesions: no lesions Rashes: no rashes Trauma: no lacerations or abrasions Wounds: no wounds Nails: normal Neuro General: patient oriented x3, gait normal and no focal neuro deficit Cranial nerves: Yes Equal, round and reactive pupils present Cognition (Neuro): normal cognition Gait exam (Neuro): Normal gait present Sensory Exam: No Sensory deficit (Neuro) Psych Appearance: grossly normal Affect: normal affect Attitude: cooperative Thought process: Normal thought process present Coding Level of Care Code New Pt Level 4 (26878) Diagnoses Multiple joint pain M25.50 Fibromyalgia M79.7 Rib pain on left side R07.81 Rib pain on right side R07.81 Urinary incontinence R32 Borderline personality disorder F60.3 Idiopathic hypersomnia G47.11 Dizziness R42 Laboratory tests ordered as part of a complete physical exam (CPE) Z00.00 Additional Codes BREANNA-7 Assessment Billing - BREANNA-7 Assessment Tool: BREANNA-7 Assessment 03121 ([id number]) PHQ-9 - 07115 - PHQ-9 Billing: Yes ([id number]) Assessment & Plan Assessment & Plan (1) Multiple joint pain: Code(s): M25.50 - Pain in unspecified joint Category: Medical Plan: Reports nontraumatic pain to multiple ankles, elbows, shoulders, wrists, knees for the past 13 years. 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 She was followed by a nurse practitioner in [place]. Normal range of motion of neck, shoulders, back, elbows, wrists, knees, and ankle joints Continue current treatment regimen. Warm/cool compresses encouraged. Referred to [facility]. Follow-up with worsening or new symptoms. Verbalized understanding and agreed with the plan. (2) Fibromyalgia: Code(s): M79.7 - Fibromyalgia Category: Medical Plan: Plan as above. (3) Rib pain on left side: Code(s): R07.81 - Pleurodynia Category: Medical Plan: Reports constant nontraumatic left and right sided ribs pain since 04/2024. Tender, bony protrusions to the left and right ribs, no edema, erythema noted. May take Tylenol ibuprofen for pain or discomfort. Warm/cool compresses encouraged. Followed by a UTI physical therapy. X-ray of bilateral ribs ordered. Referred to [facility]. (4) Rib pain on right side: Code(s): R07.81 - Pleurodynia Category: Medical Plan: Plan as above. (5) Urinary incontinence: Code(s): R32 - Unspecified urinary incontinence Category: Medical Plan: She is incontinence of urine almost every day and has been ongoing for 10 years. She was followed by a urologist in [place], [place]. She was on a medication that was discontinued due adverse reaction of dysuria. Referred to [facility] u[facility]. (6) Borderline personality disorder: Code(s): F60.3 - Borderline personality disorder Category: Medical Plan: She is on lamotrigine 25 mg daily. She notes that she has been tapering off the medication due to stable mood. PHQ-9 and BREANNA-7 scores revealed moderate anxiety and depression. Continue current treatment regimen. Routine exercise encouraged. Follow-up with symptoms or concerns. Verbalized understanding and agreed with the plan. (7) Idiopathic hypersomnia: Code(s): G47.11 - Idiopathic hypersomnia with long sleep time Category: Medical Plan: She has been sleeping well. She is on Ritalin 5mg and Concerta 27 mg daily. Followed by [facility] sleep medicine. (8) Dizziness: Code(s): R42 - Dizziness and giddiness Category: Medical Plan: She reports intermittent dizziness with standing up and walking. Her former PCP question POTS. She is on metoprol young-hydrochlorothiazide 25-12.5 mg daily. Follow-up with symptoms or concerns. Verbalized understanding and agreed with the plan. (9) Laboratory tests ordered as part of a complete physical exam (CPE): Code(s): Z00.00 - Encounter for general adult medical examination without abnormal findings Category: Medical Plan: Fasting labs ordered as part of a complete physical exam. Advised to fast for at least 10 hours before getting labs drawn. May drink water Verbalized understanding and agreed with treatment plan. Orders: Orders Vitamin B12 and Folate Today Z00.00 - Encounter for general adult medical examination without abnormal findings TSH reflex Free T4 Today Z00.00 - Encounter for general adult medical examination without abnormal findings Vitamin D 25-OH Total Today Z00.00 - Encounter for general adult medical examination without abnormal findings Lipid Panel Today Z00.00 - Encounter for general adult medical examination without abnormal findings Microalbumin, Random (w Creat) Today Z00.00 - Encounter for general adult medical examination without abnormal findings XR Ribs Delfino 2V Today R07.81 - Pleurodynia Referrals Rheumatology Referral M25.50 - Pain in unspecified joint, M79.7 - Fibromyalgia Urology Referral R32 - Unspecified urinary incontinence Orthopedics Referral R07.81 - Pleurodynia
[2024-08-28 13:24] VITALS: BP 119/68; PULSE 82; RESP 16; TEMP 36.7; O2SAT 99; BMI 23.4
--- OUTSIDE RECORDS SUMMARY | 2024-08-28 15:20 | XMS_ITS | Clinical Summary ---
Author Organization [facility] Address [address] [place] [address] [place] [address] Phone Care Team Providers Care Pipe Welder Name Role Phone Chey Harman MD Primary Care Provider [phone] Allergies No known active allergies Medications acyclovir [...] (Flonase Allergy Relief) 50 mcg/actuation nasal spray [place] 1 spray every day by intranasal route [...] of NSAIDs/Tylenol as needed. Please move to [place] next month, will let us know where [...] Continue light exercises. Plans to move to [place] next month, will let us know where [...] & Plan (01/05/2023 8:14 AM EDT): Ms. Bro reports ongoing muscle aches all over body. [...] cyclobenzaprine as needed. Plans to move to [place] next month, will let us know where [...] Labs on April 12, 2023- SONYA negative. SONAY multiplex negative. Rheumatoid factor, CCP antibody normal. [...] Care Team Description 06/14/2024 Telephone [facility]ology [facility] [phone] [place] [address] [place], [place] from Last 3 Months Medical History [...] Vaccine ( season) 2024 06/11/2021, 11/21/2020, 10/24/2020 Cervical Cancer Screening: Pap Smear 09/04/2024 09/04/2021 Social Influencers of Health Screening 11/02/2024 11/03/2023 Influenza Vaccine (Season Ended) 2025 06/11/2021, 04/13/2016 DTaP,Tdap,and Td Vaccines (6 - Td or [...] complete this topic Insurance [employer] Care Teams Pipe Welder Relationship Specialty Start Date End Date Chey Harman MD [address] [facility] [address] [place] [address] PCP - General Internal Medicine 12/29/22
== END 2024-08-28 14:14 | disposition home or self-care (01) ==
LOC: HO.HMCFM 13:06
PROVIDERS: Visit Provider Nurse Practitioner Family
DX: M25.50 Pain in unspecified joint (principal); M79.7 Fibromyalgia; R07.81 Pleurodynia; R32 Unspecified urinary incontinence; F60.3 Borderline personality disorder; G47.11 Idiopathic hypersomnia with long sleep time; R42 Dizziness and giddiness; Z00.00 Encounter for general adult medical examination without abnormal findings

== ENCOUNTER → 2024-08-28 13:05 | Outpatient (BNVA) | payer OTHER, SELFPAY | PROVIDERS: Visit Provider Nurse Practitioner Family | DX: Z76.89 Persons encountering health services in other specified circumstances (principal); M25.50 Pain in unspecified joint; M79.7 Fibromyalgia; R07.81 Pleurodynia; R32 Unspecified urinary incontinence; F60.3 Borderline personality disorder; G47.11 Idiopathic hypersomnia with long sleep time; R42 Dizziness and giddiness | CPT/HCPCS: 96127 ==

== ENCOUNTER 2024-08-31 08:25 | Outpatient (REF) | payer OTHER, SELFPAY ==
--- NOTE | ~2024-08-31 | XR_ITS ---
EXAMINATION: XR RIBS 4 VIEWS BILATERAL WITH PA CHEST HISTORY: R07.81 - Pleurodynia COMPARISON: Comparison is made with the prior examination dated 03/23/2024. FINDINGS: A single PA view of the chest and 3 views of the bilateral ribs are submitted. The lungs are expanded and clear. There is no pleural effusion, pneumothorax, or pulmonary vascular congestion. The heart is normal in the bilateral ribs are intact. No fracture is seen. XR/XR ribs BI min 4V w CXR1V IMPRESSION: No acute cardiopulmonary abnormality. No evidence of fracture of the bilateral ribs. Electronically signed by: Kaushal Mendiola MD 08/31/2024 02:16 PM EDT
--- OUTSIDE RECORDS SUMMARY | 2024-08-31 08:44 | XMS_ITS | Clinical Summary ---
Author Organization [facility] Address [address] [place] [address] [place] [address] Phone Care Team Providers Care Rd Scientist Name Role Phone Chey Harman MD Primary Care Provider [phone] Allergies No known active allergies Medications acyclovir [...] (Flonase Allergy Relief) 50 mcg/actuation nasal spray [place] 1 spray every day by intranasal route [...] Care Team Description 06/14/2024 Telephone Rheumatology Center [phone] [place] [address] [place], [place] from Last 3 Months Medical History [...] complete this topic Insurance [employer] Care Teams Rd Scientist Relationship Specialty Start Date End Date Chey Harman MD [address] [facility] [address] [place] [address] PCP - General Internal Medicine 12/29/22
[2024-08-31 11:10] LABS: Folate 9.2 ng/mL (> or = 4.0); Vitamin B12 454 pg/mL (200-900)
[2024-08-31 11:20] LABS: Cholesterol 159 mg/dL (<200); HDL Cholesterol 42 mg/dL (>40); LDL Cholesterol Calculated 105 mg/dL (<100); TSH reflex Free T4 1.82 uIU/mL (0.32-4.0); Triglycerides 61 mg/dL (<150); Vitamin D 25-OH Total 38.4 ng/mL (>30)
[2024-08-31 11:50] LABS: Creatinine Urine 260.15 mg/dL; Microalbum/Creatinine Ratio Ur 4.9 ug/mg cr (<30)
== END 2024-08-31 08:26 | disposition home or self-care (01) ==
LOC: HO.HMGCX 08:25
PROVIDERS: PCP Nurse Practitioner Family; Visit Provider Nurse Practitioner Family
DX: Z00.00 Encounter for general adult medical examination without abnormal findings (principal); R07.81 Pleurodynia
CPT/HCPCS: 36415; 71111; 80061; 82043; 82306; 82570; 82607; 82746; 84443

== ENCOUNTER → 2024-08-31 08:43 | Outpatient (BNV) | payer OTHER, SELFPAY | PROVIDERS: PCP Nurse Practitioner Family; Visit Provider Radiology Diagnostic Radiology | DX: R07.81 Pleurodynia (principal) | CPT/HCPCS: 71111 ==

== ENCOUNTER 2024-09-11 11:46 | Outpatient (AMB) | payer OTHER, SELFPAY ==
--- NOTE | 2024-09-11 11:42 | A.OFFPC_ITS ---
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: No Is last menstrual period known: Yes Last menstrual period: 09/09/24 Post menopausal: No Patient : No Allergies cat dander [cats] Allergy (Verified 09/11/24 11:43) Itching Seasonal Allergies Allergy (Verified 09/11/24 11:43) Itching Tobacco use date assessed: 09/11/24 Dental Screening Dental Screen Date: 09/11/24 Did you have a dental visit in the last 12 months?: No Did you have a dental problem in the last 6 months where you did not have access to dental care?: No Was dental information given to patient?: No HPI HPI Comments History of Present Illness Details 29-year-old female [facility] for review of recent lab results. She admits to taking her medications as prescribed without adverse reactions. She offers no complaints and denies acute symptoms at this time. She has history of Borderline personality disorder: She is on lamotrigine 25 mg daily. She notes that she has been tapering off the medication due to stable mood. She is followed by a psychiatrist at [facility], via telehealth, every three months. [facility] Medical History (Updated 09/11/24 @ 12:02 by Fuentes Mitchell CNP) Imbalance Memory loss Headache Incontinence Acid reflux IBS (irritable bowel syndrome) Back disorder Joint pain History of palpitations Sinusitis Family History Maternal Grandmother Pacemaker Heart failure Father ADHD Anxiety Depression Social History Household Members: Spouse Housing: Apartment Alcohol intake: never Patient Tobacco Use Status: Never used Tobacco e-Cigarette/Vaping Use: Never Used Patient : No service: No Current occupational status: employed 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 Kaushal Fuller, Matilde B.James Lowery and colleagues, with an educational casie from [employer]. Review of Systems Const Details: Denies chills, Denies fatigue, Denies fever(s), Denies headache(s) and Denies weakness Cardiac Denies chest pain, Denies claudication, Denies leg edema, Denies lightheadedness, Denies palpitations, Denies dyspnea, Denies dyspnea on exertion, Denies orthopnea and Denies other (Loss of consciousness) Resp Denies cough, Denies excessive phlegm production, Denies dyspnea, Denies dyspnea on exertion, Denies snoring and Denies wheezing Physical exam (Primary Care) Tobacco/Smoking Status: Tobacco use Status Tobacco use date assessed 09/11/24 09/11/24 11:45 Patient Tobacco Use Status Never used Tobacco 09/11/24 11:45 e-Cigarette/Vaping Use Never Used 09/11/24 11:45 Thrive Assessment: Date of Thrive Assessment Date Thrive assessed 08/28/24 09/11/24 11:45 Const Other: Patient is alert and oriented x3. Telehealth Telehealth Telehealth Platform: Telephone Location of provider rendering services: practice address Location of patient: address on file Patient Identification confirmed using: Name, : Yes Telehealth method: voice only Patient verbally consented to treatment: Yes Patient verbally consented to billing insurance company: Yes Patient informed of any privacy concerns related to visit: Yes Coding Level of Care Code Tele New Pt Level 3 (72785) Diagnoses Elevated LDL cholesterol level E78.00 Time Spent (min) 10 Assessment & Plan Assessment & Plan (1) Elevated LDL cholesterol level: Code(s): E78.00 - Pure hypercholesterolemia, unspecified Category: Medical Plan: Recent LDL level is slightly elevated, 105. Triglycerides, total cholesterol, and LDL levels are normal. Advised to limit foods high in saturated fat and avoid foods high in trans fat. Routine exercise encouraged. Will monitor lipid panel level annually or if related symptoms or concerns. Recent chest x-ray is normal, no fractured ribs. Encouraged to follow-up with PT as planned. Continue follow-up with psychiatrist as planned. Schedule an extended physical exam in 03/2025. Return sooner with symptoms or concerns. Verbalized understanding and agreed with treatment plan.
--- OUTSIDE RECORDS SUMMARY | 2024-09-11 14:35 | XMS_ITS | Clinical Summary ---
Author Organization [facility] Address [address] [place] [address] [place] [address] Phone Care Team Providers Care Pest Control Pilot Name Role Phone Chey Harman MD Primary Care Provider [phone] Allergies No known active allergies Medications acyclovir [...] (Flonase Allergy Relief) 50 mcg/actuation nasal spray [place] 1 spray every day by intranasal route [...] of NSAIDs/Tylenol as needed. Please move to [place] next month, will let us know where [...] Continue light exercises. Plans to move to [place] next month, will let us know where [...] cyclobenzaprine as needed. Plans to move to [place] next month, will let us know where [...] 01/03/2023 Anxiety 10/01/2020 01/03/2023 Bipolar I disorder ([facility] V24, [facility] V28) 01/03/2023 Bilateral flank pain 05/05/2017 01/03/2023 Urinary incontinence in female 12/03/2016 0 01/03/[address] 11/11/2016 01/03/2023 Overview (01/03/2023): Placed 11/11/16 Low serum vitamin D 12/16/2014 01/03/2023 Overview (01/03/2023): 12/16/14: Vit D is 22 on 12/11/14. Labwork requested by and to be reviewed by her psychiatrist. WJ Generalized anxiety disorder 08/29/201411/2022 Encounters Date Type Department Care Team Description 06/14/2024 Telephone [facility] [address] [place] [phone] [place] [address] [place], [place] from Last 3 Months Medical History Medical History Date Comments Adhd Anxiety Depressed bipolar disorder ([facility] V24, [facility] V28) OCD (obsessive compulsive disorder) Family History Medical [...] - 2-dose series) 10/02/2015 04/03/2015 Meningococcal B Vaccine (2 of 2 - Trumenba SCDM 2-dose [...] patient's age to complete this topic Insurance [facility] Care Teams Pest Control Pilot Relationship Specialty Start Date End Date Chey Harman MD [address] [facility] [address] [place] [address] PCP - General Internal Medicine 12/29/22
== END 2024-09-11 12:32 | disposition home or self-care (01) ==
LOC: HO.HMCFM 11:46
PROVIDERS: PCP Nurse Practitioner Family; Visit Provider Nurse Practitioner Family
DX: E78.00 Pure hypercholesterolemia, unspecified (principal)

== ENCOUNTER → 2024-09-11 11:46 | Outpatient (BNVA) | payer OTHER, SELFPAY | PROVIDERS: PCP Nurse Practitioner Family; Visit Provider Nurse Practitioner Family ==

== ENCOUNTER 2024-10-01 14:57 | Outpatient (AMB) | payer OTHER, SELFPAY ==
--- NOTE | 2024-10-01 15:00 | MHC.OFFVIS ---
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 President Required: No Accompanied by: Self / Same As Patient Allergies cat dander [cats] Allergy (Verified 09/11/24 11:43) Itching Seasonal Allergies Allergy (Verified 09/11/24 11:43) Itching Medication List - Last Reconciled 10/01/24 by Francisco Holt MD comp.stocking,thigh,long,small As directed cyclobenzaprine 5 mg PO TID PRN lamotrigine (Lamictal) 25 mg PO DAILY levonorgestrel-ethinyl estrad 0.1-20 mg-mcg 1 tab PO DAILY methylphenidate HCl (Ritalin) 5 mg PO DAILY methylphenidate HCl ER (Concerta) 27 mg PO DAILY metoprolol young-hydrochlorothiaz 25-12.5 mg tabs PO naltrexone 1 mg PO HPI Comments Details: 29-year-old female who is here for 1st office visit. She recently moved from [place]. She has been experiencing palpitations and tachycardia for few years. She also had intolerance of upright posture and gets tachycardia when she is standing for long time. No syncope. More recently she had significant palpitations the went to the emergency department and was eventually referred to us. She said she was being worked up for Iftikhar-Danlos syndrome while she was in [place]. She also has fibromyalgia diagnosed previously. She has skin rashes off and on. She gets abdominal pain. She has hypermobile joints by her report. She said that days she is tachycardic she drink some Gatorade but otherwise drinks water on a regular basis. No other complaints currently. 10/01/2024: She is here for follow-up. She continues to get tachycardia and fatigue with standing and activities. She said she tried to drink Gatorade but could not tolerate it and is now using a different electrolyte solution. She is trying to hydrate herself. She is following with a primary care doctor online who prescribed metoprolol for her but she has not had any significant improvement in her symptoms. [facility] Medical History (Updated 09/11/24 @ 12:02 by Fuentes Mitchell CNP) Imbalance Memory loss Headache Incontinence Acid reflux IBS (irritable bowel syndrome) Back disorder Joint pain History of palpitations Sinusitis Family History Maternal Grandmother Pacemaker Heart failure Father ADHD Anxiety Depression Social History Household Members: Spouse Housing: Apartment Alcohol intake: never Patient Tobacco Use Status: Never used Tobacco e-Cigarette/Vaping Use: Never Used service: No Current occupational status: employed Current occupation: [employer] Current occupational exposures/hazards: No Cognitive needs: No Hearing needs: No Vision needs: Yes Review of Systems Const Denies chills, Denies fatigue, Denies fever(s), Denies frequent falls, Denies weakness, Denies weight gain and Denies weight loss ENT Denies dizziness Card Denies chest pain, Denies leg edema, Denies lightheadedness, Denies palpitations, Denies dyspnea and Denies dyspnea on exertion Resp Denies cough, Denies dyspnea and Denies dyspnea on exertion GI Denies hematochezia Musc Denies abnormal gait, Denies muscle weakness, Denies numbness, Denies radiating pain into limb and Denies tingling Neuro Denies abnormal gait, Denies dizziness, Denies frequent falls, Denies numbness, Denies tingling and Denies weakness Endo Denies fatigue and Denies palpitations Physical Exam Vital Signs: Last Vital Signs Pulse 86 10/01/24 15:02 BP 110/60 10/01/24 15:02 BMI result Body Mass Index 22.6 GENERAL APPEARANCE: in no acute distress, pleasant. NECK: no carotid bruit, no jugular venous distention. SKIN: no suspicious lesions, warm and dry. HEART: no murmurs, regular rate and rhythm. LUNGS: clear to auscultation bilaterally. ABDOMEN: soft, nontender. EXTREMITIES: no edema. PERIPHERAL PULSES: equal. NEUROLOGIC: No gross deficits, AAO X 3 Assessment & Plan Assessment & Plan (1) Tachycardia: Code(s): R00.0 - Tachycardia, unspecified Category: Medical Plan Pleasant 29 year female who is here for follow-up. She has background history of hypermobile joints, skin rashes and abdominal pains off and on. She was being worked up for Iftikhar-Danlos syndrome. She is on methylphenidate for idiopathic hypersomnia. She has been taking it for 2 years. I have explained to her that methylphenidate can cause tachycardia but she is saying that the symptoms predated the start her methylphenidate. Autonomic dysfunction has a relationship with hypermobile joints. She also had skin rashes and abdominal pain which can be a symptom of mast cell activation syndrome which can also lead to tachycardia similar issues. She will benefit from seeing an theatre director. She is taking metoprolol without any significant improvement. I think she will benefit from using ivabradine. I am sending that to her pharmacy. I have advised her to continue general measures like hydration/salt intake. I think she has dysautonomia and has intolerance of upright posture due to that. Thank you for allowing me to participate in the care of your patient. Please feel free to contact me if you have any questions. Medications: New ivabradine must administer with a meal/food 5 mg PO BID 60 tabs 4RF R00.0 - Tachycardia, unspecified Coding Level of Care Code Est Pt Level 4 (56665) Diagnoses Tachycardia R00.0
[2024-10-01 15:02] VITALS: BP 110/60; PULSE 86; BMI 22.6
--- OUTSIDE RECORDS SUMMARY | 2024-10-01 16:32 | XMS_ITS | Clinical Summary ---
Author Organization [facility] Address [address] [place] [address] [place] [address] Phone Care Team Providers Care Telegraph Messenger Name Role Phone Chey Harman MD Primary Care Provider [phone] Allergies No known active allergies Medications acyclovir [...] (Flonase Allergy Relief) 50 mcg/actuation nasal spray [place] 1 spray every day by intranasal route [...] of NSAIDs/Tylenol as needed. Please move to [place] next month, will let us know where [...] Continue light exercises. Plans to move to [place] next month, will let us know where [...] cyclobenzaprine as needed. Plans to move to [place] next month, will let us know where [...] 01/03/2023 Anxiety 10/01/2020 01/03/2023 Bipolar I disorder ([facility] V24, [facility] V28) 01/03/2023 Bilateral flank pain 05/05/2017 01/03/2023 Urinary incontinence in female 12/03/2016 0 01/03/[address] 11/11/2016 01/03/2023 Overview (01/03/2023): Placed 11/11/16 Low serum vitamin D 12/16/2014 01/03/2023 Overview (01/03/2023): 12/16/14: Vit D is 22 on 12/11/14. Labwork requested by and to be reviewed by her psychiatrist. WJ Generalized anxiety disorder 08/29/201411/2022 Medical History Medical History Date Comments Adhd Anxiety Depressed bipolar disorder ([facility] V24, [facility] V28) OCD (obsessive compulsive disorder) Family History [...] patient's age to complete this topic Insurance [facility] Care Teams Telegraph Messenger Relationship Specialty Start Date End Date Chey Harman MD [address] [facility] [address] [place] [address] PCP - General Internal Medicine 12/29/22
== END 2024-10-01 15:24 | disposition home or self-care (01) ==
PROVIDERS: PCP Nurse Practitioner Family; Visit Provider Internal Medicine Cardiovascular Disease
DX: R00.0 Tachycardia, unspecified (principal)
CPT/HCPCS: 99214

== ENCOUNTER → 2024-10-01 14:57 | Outpatient (BNVA) | payer OTHER, SELFPAY | PROVIDERS: PCP Nurse Practitioner Family; Visit Provider Internal Medicine Cardiovascular Disease ==

== ENCOUNTER 2025-02-14 00:05 | Emergency (ER) | payer OTHER, SELFPAY ==
--- NOTE | ~2025-02-14 | CT_ITS ---
CLINICAL HISTORY: Right sided abdo pain tenderness CT abdomen and pelvis with contrast Comparison: None provided Findings: The lung bases are clear. The gallbladder and solid organs are within normal limits. No renal stones. No bowel obstruction, pneumoperitoneum, or pneumatosis. Stool is noted throughout the colon suggesting possible constipation. There is a radiopaque intrauterine device present. The appendix is not well visualized although there are no findings suggesting acute appendicitis. The bones are intact. IMPRESSION: No acute findings. This document has been electronically signed by: Asim Jolly MD on 02/14/2025 05:18:09
[2025-02-14 00:17] VITALS: BP 137/80; PULSE 80; RESP 20; TEMP 36.4; O2SAT 99; BMI 23.0
[2025-02-14 00:26] LABS: MANUAL DIFF FLAG NO
[2025-02-14 00:27] LABS: Hematocrit 38.2 % (37.0-47.0); Hemoglobin 13.1 g/dl (12.0-16.0); Imm Gran Abs Auto 0.02 X10*3/uL (0.00-0.03); Imm Gran Pct Auto 0.2 % (0.0-0.4); Lymphocytes Absolute Auto 2.5 X10*3/uL (1.2-4.9); Mean Corpuscular HGB Conc 34.3 g/dl (31.0-35.0); Mean Corpuscular Hemoglobin 30.5 pg (27.0-33.0); Mean Corpuscular Volume 89.0 fL (80.0-98.0); NRBC Abs Auto 0.000 X10*3/uL (0.0-0.012); NRBC Pct Auto 0.0 /100WBC (0.0-0.2); Platelet Count 239 X10*3/uL (160-400); Red Blood Count 4.29 X10*6/uL (4.20-5.50); White Blood Count 9.7 X10*3/uL (4.8-10.8)
--- NOTE | 2025-02-14 00:40 | ED_ITS ---
HPI - General Adult General Chief complaint: Abdominal Pain Stated complaint: Abdominal Pain Time Seen by Provider: 02/14/25 00:16 History of Present Illness ED Provider: Adriel TAYLOR narrative: The patient is a 29-year-old female who says that at around 11:00 tonight she was getting into bed. She pulled her knees up and had an abrupt onset of pain in the right side of her abdomen that was very severe and worse with movements. She has never had pain like this before. Pain is associated with nausea. There is no associated urinary discomfort. She has not vomited. No diarrhea. She feels the pain on the right side of her abdomen at about the level of the umbilicus or just below it. She had eaten dinner earlier in the evening a proximally 2 hours before the onset of pain. Related Data Home Medications ?Medication ?Instructions ?Recorded ?Confirmed lamotrigine 25 mg tablet (Lamictal) 25 mg PO DAILY 10/01/24 methylphenidate HCl 5 mg tablet 5 mg PO DAILY 06/27/24 10/01/24 (Ritalin) cyclobenzaprine 5 mg tablet 5 mg PO TID PRN 08/28/24 0 10/01/24 levonorgestrel-ethinyl estradiol 1 tab PO DAILY 10/01/24 0.1 mg-20 mcg tablet methylphenidate HCl 27 mg 27 mg PO DAILY 08/28/2410/21 tablet,extended release 24 hr (Concerta) naltrexone 1.5 mg capsule 1 mg PO 08/28/24 10/01/24 Previous Rx's ?Medication ?Instructions ?Recorded comp.stocking,thigh,long,small #2 ea 08/17/24 ivabradine 5 mg tablet 5 mg PO BID #60 tabs 5 Allergies Allergy/AdvReac Type Severity Reaction Status Date / Time cat dander (cats) Allergy Itching Verified 02/14/25 00:18 Seasonal Allergies Allergy Itching Verified 02/14/25 00:18 Review of Systems 2 Review of Systems: Yes all other systems are reviewed and are negative [facility] Past Medical History Medical History (Updated 02/14/25 @ 05:31 by Mj Morel MD) Imbalance Memory loss Headache Incontinence Acid reflux IBS (irritable bowel syndrome) Back disorder Joint pain History of palpitations Sinusitis Family History Family History Maternal Grandmother Pacemaker Heart failure Father ADHD Anxiety Depression Social History Social History Household Members: Spouse Housing: Apartment Alcohol intake: never Patient Tobacco Use Status: Never used Tobacco Smoked in Last 30 Days: No e-Cigarette/Vaping Use: Never Used Use of substances other than those prescribed or required for medical reasons: Yes Substance Use Type: Marijuana Advance Directives: No Advance Directives Information Provided: Yes Do you have a plan to hurt others: No Plan service: No Current occupational status: employed 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 Orientation/consciousness: patient oriented x3 HENMT Other: The face is symmetrical. ?Mucous membranes moist. Eyes Other: Pupils are round equal, conjunctivae are clear, extraocular movements intact Neck Neck: Yes normal visual inspection and Yes full ROM Resp Effort & Inspection: normal respiratory effort Auscultation: clear to auscultation bilaterally Cardio Rate: regular rate Rhythm: regular rhythm Heart sounds: S1 normal heart sound present and S2 normal heart sound present GI Other: The abdomen is flat and soft. There is right-sided tenderness, mostly in the right lower quadrant. Back/Spine/Pelvis Other: There was an equivocal finding of possible right-sided CVA percussion tenderness. Skin Other: The skin is dry and unremarkable Neuro General: patient oriented x3, tone normal, moves all extremities, no focal motor deficits and CN's II-XI intact bilaterally Extrem Other: There is no calf swelling or tenderness. No asymmetry. No peripheral edema. Medications Administered Discontinued Medications Generic Name Dose Route Start Last Admin Trade Name Freq PRN Reason Stop Dose Admin Droperidol 0.625 mg 02/14/25 02:46 02/14/25 02:52 Droperidol 5 Mg/2 Ml Vial IVPUSH 02/14/25 02:47 0.625 mg ONCE ONE Administration Acetaminophen 1,000 mg in 100 mls @ 400 mls/hr 02/14/25 00:22 02/14/25 01:08 Ofirmev IV 02/14/25 00:36 Infused ONCE ONE Infusion Sodium Chloride 1,000 mls @ 999 mls/hr 02/14/25 01:15 02/14/25 02:57 Ns IV 02/14/25 02:15 Infused .Q1H1M CONNER Infusion Iohexol 85 ml 02/14/25 03:56 02/14/25 03:57 Iohexol 350 Mg/Ml 100 Ml Infus..Btl IV 02/14/25 03:57 85 ml ONCE ONE Administration Ketorolac Tromethamine 10 mg 02/14/25 01:09 02/14/25 01:12 Ketorolac Tromethamine 15 Mg/Ml Vial IVPUSH 02/14/25 01:10 10 mg ONCE ONE Administration Ondansetron HCl 4 mg 02/14/25 00:22 02/14/25 00:36 Ondansetron Hcl 4 Mg/2 Ml Vial IVPUSH 02/14/25 00:23 4 mg ONCE ONE Administration Medical Decision Making Medical Decision Making [facility] Narrative: The patient is a 29-year-old female who presents with the abrupt onset right- sided abdominal pain that started about 1 hour prior to arrival. The patient states that the pain began when she pulled her knees up to her chest while lying in bed. The pain has been positional. She looks quite uncomfortable. The history is not highly suggestive of appendicitis. The abrupt onset of the pain could be consistent with a right-sided kidney stone but I would not expect pain of a kidney stone to be described as very positional. Abrupt onset pain could be related to a ruptured ovarian cyst were an ovarian torsion but the patient does not feel like the discomfort is anything similar to menstrual discomfort. There are no urinary symptoms or vaginal symptoms. The patient has a lab work which was quite unremarkable. She has a normal white count of 9.7 with a normal differential. No left shift. Basic metabolic panel, LFTs, and C-reactive protein are unremarkable. Lipase is normal. test is negative. The patient did not get any significant relief from 1000 mg of IV acetaminophen. She remained uncomfortable and tender. A CT scan of the abdomen and pelvis was done because of the patient's degree of discomfort and tenderness. In the meantime the patient was also given ketorolac and droperidol for her symptoms as well as IV fluids. A CT scan did not reveal any obvious explanation for her discomfort. No obvious signs of kidney stone or other renal pathology. No obvious ovarian pathology. The appendix was not seen but there was no inflammatory process suggestive of appendicitis. The patient seemed to get a lot of relief from the ketorolac and droperidol. She had fallen asleep by the time the CT results were available. She said she was feeling much better. Given the absence of any significant findings in his workup I think she may be discharged. She is advised to follow up with her PCP. Apparently her PCP works in [place]. The patient should return to the emergency room if she is worse. Lab Data 02/14/25 00:14 02/14/25 00:14 Labs: Lab Results 02/14/25 02/14/25 Range/Units 00:14 00:29 WBC 9.7 (4.8-10.8) X10*3/uL RBC 4.29 (4.20-5.50) X10*6/uL Hgb 13.1 (12.0-16.0) g/dl Hct 38.2 (37.0-47.0) % MCV 89.0 (80.0-98.0) fL MCH 30.5 (27.0-33.0) pg MCHC 34.3 (31.0-35.0) g/dl RDW 12.2 (11.0-16.0) % Plt Count 239 (160-400) X10*3/uL MPV 8.0 L (9.4-12.3) fL Immature Gran % (Auto) 0.2 (0.0-0.4) % Neut % (Auto) 64.2 (45-73) % Lymph % (Auto) 25.4 (20-40) % [place] % (Auto) 8.8 (2-11) % Eos % (Auto) 1.0 (0-4) % Baso % (Auto) 0.4 (0-2) % Lymph # (Auto) 2.5 (1.2-4.9) X10*3/uL [place] # (Auto) 0.9 (0.1-1.2) X10*3/uL Eos # (Auto) 0.1 (0.0-0.4) X10*3/uL Baso # (Auto) 0.0 (0.0-0.2) X10*3/uL Abs Immat Gran (auto) 0.02 (0.00-0.03) X10*3/uL Absolute Neuts (auto) 6.2 (2.0-8.3) x10*3/uL Absolute Nucleated RBC 0.000 (0.0-0.012) X10*3/uL Nucleated RBC % (auto) 0.0 (0.0-0.2) /100WBC Sodium 143 (135-145) mmol/L Potassium 3.7 (3.3-5.1) mmol/L Chloride 109 H (96-108) mmol/L Carbon Dioxide 27 (22-29) mmol/L Anion Gap 11 L (12-20) BUN 7 L (9-16) mg/dL Creatinine 0.67 (0.5-1.4) mg/dL Estim Creat Clear Calc 103.4 Estimated GFR > 60 Random Glucose 86 (60-115) mg/dL Calcium 9.2 (8.4-10.2) mg/dL Total Bilirubin 0.3 (0.0-1.0) mg/dL AST 19 (5-31) U/L ALT 12 (0-31) U/L Alkaline Phosphatase 46 (39-117) U/L C-Reactive Protein < 0.10 (< or = 0.50) mg/dL Total Protein 7.0 (6.5-8.0) g/dL Albumin 4.5 (3.5-5.0) g/dL Lipase 49 (8-78) U/L Beta HCG, Quant < 2 mIU/mL Urine Color Yellow Urine Appearance Clear Urine pH 7.0 (5.0-9.0) Ur Specific [place] 1.010 (1.005-1.025) Urine Protein Negative (Neg-Trace) mg/dL Urine Glucose (UA) Negative (Negative) mg/dL Urine Ketones Negative (Negative) mg/dL Urine Blood Negative (Negative) Urine Nitrite Negative (Negative) Ur Leukocyte Esterase Small (1+) H (Negative) Urine RBC 0-2 (0-2) /HPF Urine WBC 0-5 (0-5) /HPF Ur Squamous Epith Cells 0-2 (0-2) /HPF Urine Bacteria None Seen (None Seen) Hyaline Casts 0-2 (0-2) /LPF Discharge Plan Discharge Clinical Impression: Right sided abdominal pain Patient Disposition: Home, Self-Care Additional Instructions: Your testing in the emergency department is very reassuring. The CAT scan does not identify any acute problem to explain your symptoms. Your blood testing and urine testing are also unremarkable. It was not clear what was causing your pain tonight. If you in pain you may use acetaminophen (Tylenol) as needed for pain. Please plan on following up with your regular doctor to discuss this episode further. However if you have any significantly worsening pain or if you develop other symptoms such as a fever or loss of appetite or vomiting, please return to the emergency room for additional evaluation. Prescriptions: No Action (DME) comp.stocking,thigh,long,small Misc See Rx Instructions .Route Qty: 2 0RF Rx Instructions: As directed lamotrigine [Lamictal] 25 mg tablet 25 mg PO DAILY methylphenidate HCl [Ritalin] 5 mg tablet 5 mg PO DAILY ivabradine 5 mg tablet 5 mg PO BID Qty: 60 4RF Rx Instructions: must administer with a meal/food methylphenidate HCl [Concerta] 27 mg tablet extended release 24hr 27 mg PO DAILY cyclobenzaprine 5 mg tablet 5 mg PO TID PRN naltrexone 1.5 mg capsule 1 mg PO levonorgestrel-ethinyl estrad 0.1-20 mg-mcg tablet 1 tab PO DAILY Print Language: [place]
[2025-02-14 00:41] LABS: Alanine Aminotransferase 12 U/L (0-31); Albumin Level 4.5 g/dL (3.5-5.0); Alkaline Phosphatase 46 U/L (39-117); Anion Gap 11 (12-20); Aspartate Amino Transferase 19 U/L (5-31); Blood Urea Nitrogen 7 mg/dL (9-16); Calcium 9.2 mg/dL (8.4-10.2); Carbon Dioxide 27 mmol/L (22-29); Chloride 109 mmol/L (96-108); Creatinine Clr Calc Pharmacy 103.4; Estimated Glomerular Filt Rate > 60; Lipase 49 U/L (8-78); Potassium 3.7 mmol/L (3.3-5.1); Sodium 143 mmol/L (135-145); Total Protein 7.0 g/dL (6.5-8.0)
--- OUTSIDE RECORDS SUMMARY | 2025-02-14 01:00 | XMS_ITS | Clinical Summary ---
Author Organization [facility] Address [address] [address] Phone Care Team Providers Care Photographic Printer Name Role Phone Physician, Pcp Unknown Primary Care Provider Zuri vailable Allergies No known active allergies Medications acyclovir [...] Allergy Relief) 50 mcg/actuation nasal spray [facility] 1 spray every day by intranasal route [...] 10:19 AM EDT): In December 2022, Ms. Younger reported all over joint pains for the [...] of NSAIDs/Tylenol as needed. Please move to [place] next month, will let us know where to send records. Assessment & Plan (04/26/2023 6:06 PM EST): In December 2022, Ms. Younger reported all over joint pains for the [...] & Plan (01/05/2023 7:57 AM EDT): Ms. Younger reports all over joint pains for the last two years with periodic swelling in hands. She reports back pain but manageable. No synovitis on exam, mild SI joint tenderness noted. Recent labs November 2022 reported RF/CCP negative. ESR/CRP normal and SOYNA and multiplex negative. She has no psoriasis, [...] 10:18 AM EDT): In December 2022, Ms. Younger reported ongoing muscle aches all over body. [...] Continue light exercises. Plans to move to [place] next month, will let us know where to send records. Gabapentin and cyclobenzaprine refilled today. Side effects precaution discussed. Assessment & Plan (04/26/2023 8:35 AM EST): In December 2022, Ms. Younger reported ongoing muscle aches all over body. [...] & Plan (01/05/2023 8:14 AM EDT): Ms. Younger reports ongoing muscle aches all over body. [...] 10:17 AM EDT): In December 2022, Ms. Younger reported back pain since middle school, questionable scoliosis. Back pain manageable at present. On exam mild SI joint tenderness noted. Recent ESR/CRP were normal. Discussed x-rays if worsening, she will let us know. Continue ROM exercises and cautious use of NSAIDs as needed. Back symptoms present but stable. Currently takes cyclobenzaprine as needed. Plans to move to [place] next month, will let us know where to send records. Continue ROM exercises and cautious use of NSAIDs as needed. Assessment & Plan (04/26/2023 7:57 AM EST): In December 2022, Ms. Younger reported back pain since middle school, questionable scoliosis. Back pain manageable at present. On exam mild SI joint tenderness noted. Recent ESR/CRP were normal. Discussed x-rays if worsening, she will let us know. Continue ROM exercises and cautious use of NSAIDs as needed. Assessment & Plan (01/05/2023 8:00 AM EDT): Ms. Younger reports back pain since middle school, questionable scoliosis. Back pain manageable at present. On exam mild SI joint tenderness noted. Recent ESR/CRP were normal. Discussed x-rays if worsening, she will let us know. Continue ROM exercises and cautious use of NSAIDs as needed. Skin rash 01/05/2023 Assessment & Plan (11/03/2023 10:19 AM EDT): In December 2022, Ms. Younger reported on and off skin rash that [...] 6:07 PM EST): In December 2022, Ms. Younger reported on and off skin rash that [...] & Plan (01/05/2023 8:04 AM EDT): Ms. Younger reports on and off skin rash that [...] 10:19 AM EDT): In December 2022, Ms. Younger reported persistent fatigue. She also has muscle [...] 6:07 PM EST): In December 2022, Ms. Younger reported persistent fatigue. She also has muscle [...] & Plan (01/05/2023 8:12 AM EDT): Ms. Younger reports persistent fatigue. She also has muscle [...] 01/03/2023 Anxiety 10/01/2020 01/03/2023 Bipolar I disorder ([facility] V24, [facility] V28) 01/03/2023 Bilateral flank pain 05/05/2017 01/03/2023 Urinary incontinence in female 12/03/2016 0 01/03/[address] 11/11/2016 01/03/2023 Overview (01/03/2023): Placed 11/11/16 Low serum vitamin D 12/16/2014 01/03/2023 Overview (01/03/2023): 12/16/14: Vit D is 22 on 12/11/14. Labwork requested by and to be reviewed by her psychiatrist. WJ Generalized anxiety disorder 08/29/201411/2022 Encounters Date Type Department Care Team Description 01/27/2025 10:44 PM EDT - 01/28/2025 2:36 AM EDT Emergency [facility] Emergency [address] [place] [address] Neck pain (Primary Dx) Discharge Disposition: Home or Self Care from Last 3 Months Medical History Medical History Date Comments Adhd Anxiety Depressed bipolar disorder ([facility] V24, [facility] V28) OCD (obsessive compulsive disorder) Family History [...] Sign Reading Time Taken Comments Blood Pressure 123/82 01/28/2025 2:35 AM EDT Pulse 66 01/28/2025 2:35 AM EDT Temperature 36.6 C (97.9 F) 01/28/2025 2:35 AM EDT Respiratory Rate 18 01/28/2025 2:35 AM EDT Oxygen Saturation 100% 01/28/2025 2:35 AM EDT Inhaled Oxygen Concentration - - Weight 55.1 kg (121 lb 6.4 oz) 01/27/2025 9:42 P M EDT Height 160 cm (5' 3 ) 01/27/2025 9:42 PM EDT Body Mass Index 21.51 01/27/2025 9:42 PM EDT Plan of Treatment Health Maintenance Due Date Last Done Comments Meningococcal B Vaccine (2 of 2 - Trumenba SCDM 2-dose series) 10/11/2016 04/13/2016 HIV Screening 12/06/2021 Social Influencers of Health Screening 12/06/2021 Depression Screening 05/30/2024 Cervical Cancer Screening: Pap Smear 09/04/2024 09/04/2021 Influenza Vaccine (#1) 2025 06/11/2021, 2015 DTaP,Tdap,and Td Vaccines (6 - Td or Tdap) 10/07/2030 10/07/2020, 02/15/2008, 01/05/2006, Additional history exists HIB Vaccines Aged Out 11/27/2004 No longer eligi ble based on patient's age to complete this topic IPV Vaccines Completed 04/21/2005, 01/30, 11/27/2004 MMR Vaccines Completed 04/21/2005, 11/27/2004 Varicella Vaccines Completed 01/05/2006, 02/26/2005 Hepatitis B Vaccines Completed 03/08/2006, 01/05/2006, 02/26/2005 Hepatitis A Vaccines Completed 04/03/2015, 11/01/19 13 Meningococcal ACWY Vaccine Completed 04/03/2015, HPV Vaccines Completed 04/13/2016, 09/2014, 10/31/2012 Hepatitis C Screening Completed 11/11/2016 COVID-19 Vaccine Completed 09/10/2024, , 11/21/2020, Additional history exists Pneumococcal Vaccine: Pediatrics (0 to 5 Years) and At-Risk Patients (6 to 49 Years) Aged Out No longer eligible based on patient's age to complete this topic RSV Immunization Patients Under 20 months Aged Out No longer eligible based on patient's age to complete this topic Procedures Procedure Name Priority Date/Time Associated Diagnosis Comments CT ANGIO HEAD/NECK WO AND/OR W CONTRAST STAT 01/28/2025 1:08 AM EDT CBC WITH AUTO DIFFERENTIAL STAT 01/28/2025 12:17 AM EDT CBC AND DIFFERENTIAL STAT 01/28/2025 12:17 AM EDT COMPREHENSIVE METABOLIC PANEL STAT 01/28/2025 12:17 AM EDT POC , URINE DIAGNOSTIC STAT 01/27/2025 11:23 PM EDT from Last 3 Months Results * CT Angio Head/Neck wo and/or w Contrast (01/28/2025 1:08 AM EDT) Anatomical Region Laterality Modality Head and Neck Computed Tomogra phy 01/28/2025 2:14 AM EDT Impressions 01/28/2025 2:14 AM EDT 1. Unremarkable head CT. 2. Patent head and neck CTA. This document has been electronically signed by: José Miguel Mccoy MD on 01/28/2025 02:14:57 Narrative 01/28/2025 2:14 AM EDT INDICATION: Dizziness, non-specific CT Head without contrast. CT angiography head and neck with contrast. 3D Postprocessing. Comparison: None provided Findings: HEAD CT: No intra-axial mass, midline shift, hydrocephalus, or acute hemorrhage. No significant atrophy-like change or white matter disease. The visualized paranasal sinuses and mastoid air cells are normal. The orbits are unremarkable. No skull fracture. HEAD AND NECK CTA: Aortic arch and cervical great vessels are patent. Aberrant right subclavian artery. Intracranial arteries are patent. No aneurysm, dissection, or occlusion. No abnormal intracranial enhancement. Persistent left-sided SVC. The visualized thyroid gland is unremarkable. No cervical mass or fluid collection. Lung apices clear. No acute fracture. Procedure Note Jos éMiguel Mccoy MD - 01/28/2025 INDICATION: Dizziness, non-specific CT Head without contrast. CT angiography head and neck with contrast. 3D Postprocessing. Comparison: None provided Findings: HEAD CT: No intra-axial mass, midline shift, hydrocephalus, or acute hemorrhage. No significant atrophy-like change or white matter disease. The visualized paranasal sinuses and mastoid air cells are normal. The orbits are unremarkable. No skull fracture. HEAD AND NECK CTA: Aortic arch and cervical great vessels are patent. Aberrant right subclavian artery. Intracranial arteries are patent. No aneurysm, dissection, or occlusion. No abnormal intracranial enhancement. Persistent left-sided SVC. The visualized thyroid gland is unremarkable. No cervical mass or fluid collection. Lung apices clear. No acute fracture. IMPRESSION: 1. Unremarkable head CT. 2. Patent head and neck CTA. This document has been electronically signed by: José Miguel Mccoy MD on 01/28/2025 02:14:57 Ivon TREVI[address]O IM CT PROCEDURES Final Result * CBC auto differential (01/28/2025 12:17 AM EDT) WBC 7.1 4.8 - 10.8 K/mcL LAB HEMETOLOGY METHOD 01/28/2025 12:24 AM EDT [facility] RBC 4.40 3.80 - 4.80 M/mcL LAB HEMETOLOGY METHOD 01/28/2025 12:24 AM [facility] Hemoglobin 13.0 11.5 - 16.0 g/dL LAB HEMETOLOGY METHOD 01/28/2025 12:24 AM [facility] Hematocrit 38.9 35.0 - 47.0 % LAB HEMETOLOGY METHOD 01/28/2025 12:24 AM [facility] MCV 89.0 79.0 - 98.0 FL LAB HEMETOLOGY METHOD 01/28/2025 12:24 AM [facility] MCH 29.7 27.0 - 32.0 pcg LAB HEMETOLOGY METHOD 01/28/2025 12:24 AM [facility] MCHC 33.4 32.0 - 37.0 g/dL LAB HEMETOLOGY METHOD 01/28/2025 12:24 AM [facility] RDW 11.9 11.0 - 15.0 % LAB HEMETOLOGY METHOD 01/28/2025 12:24 AM [facility] Platelets 269 130 - 400 K/mcL LAB HEMETOLOGY METHOD 01/28/2025 12:24 AM [facility] MPV 8.2 7.0 - 11.0 FL LAB HEMETOLOGY METHOD 01/28/2025 12:24 AM [facility] NRBC 0.0 <1.0 % LAB HEMETOLOGY METHOD 01/28/2025 12:24 AM [facility] NRBC Absolute 0.00 <0.10 K/mcL LAB HEMETOLOGY METHOD 01/28/2025 12:24 AM [facility] Neutrophils Relative 52.5 % LAB HEMETOLOGY METHOD 01/28/2025 12:24 AM [facility] Lymphocytes Relative 37.2 % LAB HEMETOLOGY METHOD 01/28/2025 12:24 AM [facility] Monocytes Relative 8.3 % LAB HEMETOLOGY METHOD 01/28/2025 12:24 AM [facility] Eosinophils Relative 1.3 % LAB HEMETOLOGY METHOD 01/28/2025 12:24 AM [facility] Basophils Relative 0.6 % LAB HEMETOLOGY METHOD 01/28/2025 12:24 AM [facility] Immature Granulocytes Relative 0.1 % LAB HEMETOLOGY METHOD 01/28/2025 12:24 AM [facility] Neutrophils Absolute 3.71 1.50 - 7.00 K/mcL LAB HEMETOLOGY METHOD 01/28/2025 12:24 AM [facility] Lymphocytes Absolute 2.63 1.00 - 5.00 K/mcL LAB HEMETOLOGY METHOD 01/28/2025 12:24 AM [facility] Monocytes Absolute 0.59 0.20 - 1.00 K/mcL LAB HEMETOLOGY METHOD 01/28/2025 12:24 AM [facility] Eosinophils Absolute 0.09 0.00 - 0.50 K/mcL LAB HEMETOLOGY METHOD 01/28/2025 12:24 AM [facility] Basophils Absolute 0.04 0.00 - 0.20 K/mcL LAB HEMETOLOGY METHOD 01/28/2025 12:24 AM [facility] Immature Granulocytes Absolute 0.01 0.00 - 0.03 K/mcL LAB HEMETOLOGY METHOD 01/28/2025 12:24 AM [facility] Blood Venous blood specimen / Unknown Venipuncture / Unknown 01/28/2025 12:17 AM EDT 01/28/2025 12:21 AM EDT us Ivon TREVIÑO LAB BLOOD ORDERABLES Fin al Result [facility] [address] [place] [address], [place] [phone] * (ABNORMAL) Comprehensive Metabolic Panel (CMP) (01/28/2025 12:17 AM EDT) Sodium 138 133 - 145 mmol/L LAB CHEMISTRY METHOD 01/28/2025 12:51 AM [facility] Potassium 3.4(L) 3.5 - 5.5 mmol/L LAB CHEMISTRY METHOD 01/28/2025 12:51 AM [facility] Chloride 106 96 - 110 mmol/L LAB CHEMISTRY METHOD 01/28/2025 12:51 AM [facility] CO2 27 21 - 32 mmol/L LAB CHEMISTRY METHOD 01/28/2025 12:51 AM [facility] Anion Gap 5 3 - 11 LAB CHEMISTRY METHOD 01/28/2025 12:51 AM [facility] Glucose 96 70 - 100 mg/dL LAB CHEMISTRY METHOD 01/28/2025 12:51 AM [facility] BUN 7 5 - 25 mg/dL LAB CHEMISTRY METHOD 01/28/2025 12:51 AM [facility] Creatinine 0.57 0.50 - 1.10 mg/dL LAB CHEMISTRY METHOD 01/28/2025 12:51 AM [facility] eGFR 127 >=60 mL/min/1. 73m2 LAB CHEMISTRY METHOD 01/28/2025 12:51 AM [facility] Comment:Calculation based on the Chronic Kidney Disease Epidemiology Collaboration (CKD-EPI) equation refit without adjustment for race. BUN/Creatinine Ratio 12.3 LAB CHEMISTRY METHOD 01/28/2025 12:51 AM [facility] Calcium 9.0 8.5 - 10.5 mg/dL LAB CHEMISTRY METHOD 01/28/2025 12:51 AM [facility] AST (SGOT) 16 10 - 42 unit/L LAB CHEMISTRY METHOD 01/28/2025 12:51 AM [facility] ALT (SGPT) 13 10 - 60 unit/L LAB CHEMISTRY METHOD 01/28/2025 12:51 AM [facility] Alkaline Phosphatase 48 42 - 121 unit/L LAB CHEMISTRY METHOD 01/28/2025 12:51 AM [facility] Total Protein 7.6 6.0 - 8.0 g/dL LAB CHEMISTRY METHOD 01/28/2025 12:51 AM [facility] Albumin 4.5 3.2 - 5.0 g/dL LAB CHEMISTRY METHOD 01/28/2025 12:51 AM [facility] Total Bilirubin 0.3 0.0 - 1.4 mg/dL LAB CHEMISTRY METHOD 01/28/2025 12:51 AM [facility] Blood Venous blood specimen / Unknown Venipuncture / Unknown 01/28/2025 12:17 AM EDT 01/28/2025 12:21 AM EDT us Ivon TREVIÑO LAB BLOOD ORDERABLES Fin al Result [facility] [address] [place] [address], * POC , urine manually resulted (01/27/2025 11:23 PM EDT) HCG, Ur POC Negative Negative POC hCG Int QC Pass? Yes Yes Urine Urine specimen obtained by clean catch procedure / Unknown 01/27/2025 11:23 PM EDT Ivon TREVIÑO POINT OF CARE TEST ENTER /EDIT ORDERABLES Final Result from Last 3 Months Insurance [employer] Care Teams Photographic Printer Relationship Specialty Start Date End Date Physician, Pcp Unknown PCP - General 01/27/25
--- OUTSIDE RECORDS SUMMARY | 2025-02-14 01:00 | XMS_ITS | Clinical Summary ---
Author Organization [address] [address] Phone Care Team Providers Care Pot Holder Binder Name Role Phone Pcp, Unknown Primary Care Provider Unavailabl e Social History Tobacco Use Types Packs/Day Years Used Date Smoking Tobacco: Never Assessed Comments Unknown Sex and Gender Information Value Date Recorded Sex Assigned at Not on file Legal Sex Female 3:57 PM EST Gender Identity Not on file Sexual Orientation Not on file Plan of Treatment Not on file Medical Devices Not on file Insurance [employer] TPA CIG[employer] TPA [employer] TPA [employer] [place] Care Teams Pot Holder Binder Relationship Specialty Start Date End Date Pcp, Unknown PCP - General 07/09/24 Additional Source Comments The information contained in this document represents components of the legal health record. It is not the complete legal health record.[facility]
--- NOTE | 2025-02-14 01:06 | PC.NURSE ---
pts IV tylenol finished infusing. pt states pain is still an 8- provider made aware. waiting for pending orders.
[2025-02-14 01:31] LABS: Appearance Urine Clear; Glucose Urine UA Negative (Negative); PH 7.0 (5.0-9.0); Specific Gravity - Urine 1.010 (1.005-1.025); UMIC TRIGGER UACC YES
[2025-02-14 01:43] LABS: UACC Culture Trigger YES
[2025-02-14 03:04] VITALS: BP 107/62; PULSE 71; RESP 16; TEMP 36.6; O2SAT 99
[2025-02-14] MEDS: iohexoL 350 MG/ML 100 ML INFUS..BTL 85 ML IV (03:57)
[2025-02-14 04:00] VITALS: BP 114/72; PULSE 74; RESP 18; TEMP 36.4; O2SAT 98
[2025-02-14 05:43] VITALS: BP 114/72; PULSE 74; RESP 18; TEMP 36.4; O2SAT 98
== END 2025-02-14 05:44 | disposition home or self-care (01) ==
PROVIDERS: Emergency Provider Emergency Medicine
DX: R10.2 Pelvic and perineal pain (principal); R11.0 Nausea; Z79.899 Other long term (current) drug therapy
CPT/HCPCS: 36415; 74177; 80053; 81001; 83690; 84702; 85025; 86140; 87086; 96361; 96365; 96375; 99285; J0131; J1790; J1885; J2405; Q9967

== ENCOUNTER → 2025-02-14 02:47 | Outpatient (BNV) | payer OTHER, SELFPAY | PROVIDERS: Emergency Provider Emergency Medicine; Visit Provider Radiology Diagnostic Radiology | DX: R10.31 Right lower quadrant pain (principal) | CPT/HCPCS: 74177 ==

== ENCOUNTER 2025-05-03 09:59 | Emergency (ER) | payer OTHER, SELFPAY ==
[2025-05-03 10:08] VITALS: BP 131/60; PULSE 88; RESP 18; TEMP 36.4; O2SAT 97; BMI 21.2
--- NOTE | 2025-05-03 10:17 | ED.GENADULT ---
HPI - General Adult General Chief complaint: Skin/Abscess/Foreign Body Stated complaint: throat abscess Time Seen by Provider: 05/03/25 12:14 Source: patient Mode of arrival: ambulatory Limitations: no limitations History of Present Illness HPI narrative: This is a 29 years old female presented to the emergency room from urgent care, she has been taking azithromycin for sore throat for about 4 days she states though that she is no better a urgent care referred to us for a possible right perintossillar abscess Onset (ago): day(s) (4) Radiation: non-radiation Severity: mild Pain Consistency: constant Relieving factors: none Exacerbating factors: none Associated symptoms: denies other symptoms Related Data Home Medications ?Medication ?Instructions ?Recorded ?Confirmed lamotrigine 25 mg tablet (Lamictal) 25 mg PO DAILY 06/27/24 10/01/24 methylphenidate HCl 5 mg tablet 5 mg PO DAILY 06/27/24 10/01/24 (Ritalin) cyclobenzaprine 5 mg tablet 5 mg PO TID PRN 08/28/24 10/01/24 levonorgestrel-ethinyl estradiol 1 tab PO DAILY 08/28/24 10/01/24 0.1 mg-20 mcg tablet methylphenidate HCl 27 mg 27 mg PO DAILY 08/28/24 10/01/24 tablet,extended release 24 hr (Concerta) naltrexone 1.5 mg capsule 1 mg PO 08/28/24 10/01/24 Previous Rx's ?Medication ?Instructions ?Recorded comp.stocking,thigh,long,small #2 ea 08/17/24 ivabradine 5 mg tablet 5 mg PO BID #60 tabs 10/01/24 amoxicillin 875 mg-potassium 1 tab PO BID #20 tabs 05/03/25 clavulanate 125 mg tablet naproxen 500 mg tablet (Naprosyn) 500 mg PO BID PRN PAIN #20 tabs 05/03/25 prednisone 20 mg tablet 40 mg (2 x 20 mg) PO DAILY 5 days 05/03/25 #10 tabs Allergies Allergy/AdvReac Type Severity Reaction Status Date / Time cat dander (cats) Allergy Itching Verified 05/03/25 10:09 Seasonal Allergies Allergy Itching Verified 05/03/25 10:09 NSAIDS (Non-Steroidal AdvReac Itching Verified 05/03/25 10:09 Anti-Inflamma Review of Systems Constitutional: Constitutional: Reports no additional constitutional complaints ENT: Reports as per HPI [facility] Past Medical History Medical History Imbalance Memory loss Headache Incontinence Acid reflux IBS (irritable bowel syndrome) Back disorder Joint pain History of palpitations Sinusitis Family History Family History Maternal Grandmother Pacemaker Heart failure Father ADHD Anxiety Depression Social History Social History Household Members: Spouse Housing: Apartment Alcohol intake: never Patient Tobacco Use Status: Never used Tobacco e-Cigarette/Vaping Use: Never Used Substance Use Type: Marijuana Advance Directives: No Advance Directives Information Provided: No Do you have a plan to hurt others: No Plan service: No Current occupational status: employed Current occupation: [employer] Current occupational exposures/hazards: No Cognitive needs: No Hearing needs: No Vision needs: Yes Physical Exam ED Exam Exam: She looks well she is not toxic-appearing voice is normal Vital Signs: Vital Signs - 24 hr 05/03/25 10:08 05/03/25 12:00 05/03/25 13:16 Temperature 97.6 F 97.6 F Pulse Rate 88 78 78 Respiratory Rate 18 20 20 Blood Pressure 131/60 132/66 132/66 Pulse Oximetry 97 99 99 Oxygen Delivery Method Room Air Room Air Room Air BMI result Body Mass Index 21.2 Const General: cooperative Nutritional Appearance: average body habitus Orientation/consciousness: patient oriented x3 Limitations: no limitations [facility] Head: Yes normal to inspection Ears: hearing grossly normal bilaterally General nose exam: Normal external nose present Face and sinus: Yes normal facial exam Mouth: Normal oral and palatal mucosa present and other (Patient has no trismus, uvula is midline, able to open mouth wide open) Throat: Yes uvula midline Neck Neck: Yes normal visual inspection Chest Chest palpation & inspection: normal inspection of the chest Resp Effort & Inspection: normal respiratory effort Auscultation: clear to auscultation bilaterally Cardio Jugular venous distension: no JVD Rate: regular rate Rhythm: regular rhythm GI Inspection: Yes normal to inspection Palpation (GI): Soft to palpation Auscultation: normal bowel sounds Skin General skin exam: no rashes or lesions noted and elasticity normal Neuro General: patient oriented x3 Course Course Course Narrative: Rapid medical examination performed in triage by Jahaira Edward PA-C: Patient is a 29 year old assigned female at presenting to the emergency department with a throat abscess. Patient states she was seen at the urgent care and told she has an abscess and not strep throat. Detailed physical exam and review of systems are deferred to the incident manager. Labs and swabs ordered. Patient placed back in the waiting room pending room availability and results. Medications Administered Discontinued Medications Generic Name Dose Route Start Last Admin Trade Name Veronica PRN Reason Stop Dose Admin Amoxicillin 500 mg 05/03/25 12:24 05/03/25 13:12 Amoxicillin 500 Mg Capsule PO 05/03/25 12:25 500 mg ONCE ONE Administration Prednisone 60 mg 05/03/25 12:25 05/03/25 13:12 Prednisone 20 Mg Tablet PO 05/03/25 12:26 60 mg ONCE ONE Administration Medical Decision Making Medical Decision Making [facility] Narrative: Patient presented with a throat pain, sent for possible abscess I do not think she has a an abscess she able to open the mouth wide open, she has a no trismus, voice is normal, uvula is midline. I think she can be discharged home on prednisone and Augmentin she is on azithromycin which he has not the drug of choice for strep. She tested positive for strep here. Also labs normal including white count. I discussed with the patient possible CT but I think risk of radiation would outweigh the benefit. Pt is comfortable with the plan of care Differential Diagnosis Differential Diagnoses: The differential diagnosis associated with the presentation includes strep throat/ viral pharyngitis / mononucleosis Lab Data [facility] Lab Attestation statement: I reviewed the patient's lab results. 05/03/25 10:41 05/03/25 10:41 Labs: Lab Results 05/03/25 Range/Units 10:41 WBC 9.3 (4.8-10.8) X10*3/uL RBC 4.15 L (4.20-5.50) X10*6/uL Hgb 12.7 (12.0-16.0) g/dl Hct 37.2 (37.0-47.0) % MCV 89.6 (80.0-98.0) fL MCH 30.6 (27.0-33.0) pg MCHC 34.1 (31.0-35.0) g/dl RDW 11.5 (11.0-16.0) % Plt Count 170 D (160-400) X10*3/uL MPV 8.5 L (9.4-12.3) fL Immature Gran % (Auto) 0.4 (0.0-0.4) % Neut % (Auto) 77.0 H (45-73) % Lymph % (Auto) 11.2 L (20-40) % Gonzales % (Auto) 10.9 (2-11) % Eos % (Auto) 0.3 (0-4) % Baso % (Auto) 0.2 (0-2) % Lymph # (Auto) 1.0 L (1.2-4.9) X10*3/uL Gonzales # (Auto) 1.0 (0.1-1.2) X10*3/uL Eos # (Auto) 0.0 (0.0-0.4) X10*3/uL Baso # (Auto) 0.0 (0.0-0.2) X10*3/uL Abs Immat Gran (auto) 0.04 H (0.00-0.03) X10*3/uL Absolute Neuts (auto) 7.2 (2.0-8.3) x10*3/uL Absolute Nucleated RBC 0.000 (0.0-0.012) X10*3/uL Nucleated RBC % (auto) 0.0 (0.0-0.2) /100WBC Sodium 141 (135-145) mmol/L Potassium 3.4 (3.3-5.1) mmol/L Chloride 107 (96-108) mmol/L Carbon Dioxide 27 (22-29) mmol/L Anion Gap 10 L (12-20) BUN 8 L (9-16) mg/dL Creatinine 0.62 (0.5-1.4) mg/dL Estim Creat Clear Calc 116.6 Estimated GFR > 60 Random Glucose 92 (60-115) mg/dL Calcium 9.3 (8.4-10.2) mg/dL Total Bilirubin 0.3 (0.0-1.0) mg/dL AST 18 (5-31) U/L ALT 13 (0-31) U/L Alkaline Phosphatase 53 (39-117) U/L Total Protein 7.0 (6.5-8.0) g/dL Albumin 4.4 (3.5-5.0) g/dL Beta HCG, Quant < 2 mIU/mL S. pyogenes GrpA MIR Positive A (Negative) Discharge Plan Discharge Clinical Impression: Strep pharyngitis Patient Disposition: Home, Self-Care Instructions: Strep Throat (DC) Additional Instructions: We sent a prescription for your for Augmentin (azithromycin is not the trunk of choice for strep throat) also we sent a prescription for prednisone and naproxen. Follow-up on Tuesday with the primary care physician return if worse Prescriptions: New amoxicillin-pot clavulanate 875-125 mg tablet 1 tab PO BID Qty: 20 0RF prednisone 20 mg tablet 40 mg PO DAILY 5 Days Qty: 10 0RF naproxen [Naprosyn] 500 mg tablet 500 mg PO BID PRN (Reason: PAIN) Qty: 20 0RF No Action (DME) comp.stocking,thigh,long,small Misc See Rx Instructions .Route Qty: 2 0RF Rx Instructions: As directed lamotrigine [Lamictal] 25 mg tablet 25 mg PO DAILY methylphenidate HCl [Ritalin] 5 mg tablet 5 mg PO DAILY ivabradine 5 mg tablet 5 mg PO BID Qty: 60 4RF Rx Instructions: must administer with a meal/food methylphenidate HCl [Concerta] 27 mg tablet extended release 24hr 27 mg PO DAILY cyclobenzaprine 5 mg tablet 5 mg PO TID PRN naltrexone 1.5 mg capsule 1 mg PO levonorgestrel-ethinyl estrad 0.1-20 mg-mcg tablet 1 tab PO DAILY Referrals: Fuentes Mitchell, MARY [Primary Care Provider, Internal Medicine] - 05/06/25 Interventions: ED Discharge Assessment Last Done: 05/03/25 13:16 Discharge Date/Time: 05/03/25 13:17 Print Language: Maltese
[2025-05-03 10:47] LABS: MANUAL DIFF FLAG NO
[2025-05-03 10:51] LABS: Hematocrit 37.2 % (37.0-47.0); Hemoglobin 12.7 g/dl (12.0-16.0); Imm Gran Abs Auto 0.04 X10*3/uL (0.00-0.03); Imm Gran Pct Auto 0.4 % (0.0-0.4); Mean Corpuscular HGB Conc 34.1 g/dl (31.0-35.0); Mean Corpuscular Hemoglobin 30.6 pg (27.0-33.0); Mean Corpuscular Volume 89.6 fL (80.0-98.0); NRBC Pct Auto 0.0 /100WBC (0.0-0.2); Platelet Count 170 X10*3/uL (160-400); Red Blood Count 4.15 X10*6/uL (4.20-5.50); White Blood Count 9.3 X10*3/uL (4.8-10.8)
[2025-05-03 10:52] LABS: Lymphocytes Absolute Auto 1.0 X10*3/uL (1.2-4.9); NRBC Abs Auto 0.000 X10*3/uL (0.0-0.012)
[2025-05-03 10:53] LABS: IDNOW Serial# 58CA691E; Strep A Nucleic Acid Positive (Negative)
[2025-05-03 11:26] LABS: Alanine Aminotransferase 13 U/L (0-31); Albumin Level 4.4 g/dL (3.5-5.0); Alkaline Phosphatase 53 U/L (39-117); Anion Gap 10 (12-20); Aspartate Amino Transferase 18 U/L (5-31); Blood Urea Nitrogen 8 mg/dL (9-16); Calcium 9.3 mg/dL (8.4-10.2); Carbon Dioxide 27 mmol/L (22-29); Chloride 107 mmol/L (96-108); Creatinine Clr Calc Pharmacy 116.6; Estimated Glomerular Filt Rate > 60; Potassium 3.4 mmol/L (3.3-5.1); Sodium 141 mmol/L (135-145); Total Protein 7.0 g/dL (6.5-8.0)
[2025-05-03 12:00] VITALS: BP 132/66; PULSE 78; RESP 20; O2SAT 99
--- OUTSIDE RECORDS SUMMARY | 2025-05-03 12:50 | XMS_ITS | Clinical Summary ---
Author Organization [facility] Address [address] [address] Phone Care Team Providers Care Information Technology Consultant Name Role Phone Physician, Pcp Unknown Primary [...] (Flonase Allergy Relief) 50 mcg/actuation nasal spray [place] 1 spray every day by intranasal route [...] of NSAIDs/Tylenol as needed. Please move to [place] next month, will let us know where [...] Continue light exercises. Plans to move to [place] next month, will let us know where [...] cyclobenzaprine as needed. Plans to move to [place] next month, will let us know where [...] 01/03/2023 Anxiety 10/01/2020 01/03/2023 Bipolar I disorder ([facility] V24, [facility] V28) 01/03/2023 Bilateral flank pain 05/05/2017 01/03/2023 [...] Date Comments Adhd Anxiety Depressed bipolar disorder ([facility] V24, [facility] V28) OCD (obsessive compulsive disorder) Family History [...] 2-dose series) 10/11/2016 04/13/2016 HIV Screening 12/06/2021 Depression Screening 05/30/2024 Cervical Cancer Screening: Pap Smear 09/04/2024 09/04/2021 Social Influencers of Health Screening 11/02/2024 11/03/2023 COVID-19 Vaccine ( season) 2025 09/10/2024, 06/11/2021, 11/21/2020, Additional history exists Influenza Vaccine (#1) 2025 06/11/2021, 2015 DTaP,Tdap,and Td Vaccines (6 - Td or Tdap) 10/07/2030 10/07/2020, 02/15/2008, 01/05/2006, Additional history exists RSV Immunization Adult Patients (1 - 1-dose 75+ series) 2071 HIB Vaccines Aged Out 11/27/2004 No longer eligi ble based on patient's age to complete this topic IPV Vaccines Completed 04/21/2005, 01/30, 11/27/2004 MMR Vaccines Completed 04/21/2005, 11/27/2004 Varicella Vaccines Completed 01/05/2006, 02/26/2005 Hepatitis B Vaccines Completed 03/08/2006, 01/05/2006, 02/26/2005 Hepatitis A Vaccines Completed 04/03/2015, 11/01/19 13 Meningococcal ACWY Vaccine Completed 04/03/2015, HPV Vaccines Completed 04/13/2016, 09/2014, 10/31/2012 Hepatitis C Screening Completed 11/11/2016 Pneumococcal Vaccine: Pediatrics (0 to 5 Years) and At-Risk Patients (6 to 49 Years) Aged Out No longer eligible based on patient's age to complete this topic RSV Immunization Patients Under 20 months Aged Out No longer eligible based on patient's age to complete this topic Insurance [employer] Care Teams Information Technology Consultant Relationship Specialty Start Date End Date Physician, Pcp Unknown PCP - General 01/27/25
--- OUTSIDE RECORDS SUMMARY | 2025-05-03 12:50 | XMS_ITS | Clinical Summary ---
Author Organization [address] [address] Phone Care Team Providers Care Syrup Blender Name Role Phone Pcp, Unknown Primary Care [...] Devices Not on file [place] [facility] [place]: [facility] [id number] [place] [id number] [employer] Care Teams Syrup Blender Relationship Specialty Start Date End Date Pcp, Unknown PCP - General 07/09/24 Additional Source Comments The information contained in this document represents components of the legal health record. It is not the complete legal health record.[facility]
--- OUTSIDE RECORDS SUMMARY | 2025-05-03 12:50 | XMS_ITS | Clinical Summary ---
Author Organization [facility] Address [facility] [place] [address] Care Team Providers Care Pocket Machine Operator Name Role Phone Sal Ku SHELBY Primary Care Provider [phone] Allergies No known active allergies Medications methylphenidate (Concerta) 27 mg ER 24 hr tablet Take 27 mg by mouth every morning. 08/01/2024 Active methylphenidate (Ritalin) 5 mg tablet Take 5 mg by mouth 2 times daily. 11/09/2023 Active ivabradine (Corlanor) 5 mg tablet Take 5 mg by mouth 2 times daily. 10/01/2024 Active cyclobenzaprine (Flexeril) 5 mg tabletIndicatio ns:Fibromyalgia Take 1 tablet by mouth 3 times daily as needed for Muscle spasms. 30 tablet 3 11/05/2024 Active naltrexone 1.5 mg CapsuleIndicati ons:Fibromyalgi a Take 1 capsule by mouth daily. 90 capsule 11/05/2024 Active Active Problems Problem Noted Date Diagnosed Date Tension headache 11/05/2024 Overview (11/05/2024): Over the last couple months she has also noticed new headaches - will get sharp pains that go from back of head and spread to the front - In the days leading up to these headaches, she will start to have pain and stiffness in her neck. - Once the pain shifts from her neck up to her head, she will get a tight headache, bilateral; these episodes will then go away on their own (30-60 minutes) -these episodes happen every 3-4 weeks - She has noticed there is some correlation with her neck pain in the days following her physical therapy visits as they have been working on neck strength Assessment & Plan (11/05/2024 6:24 PM EDT): Description of her headaches sounds like tension related from tight neck muscles after doing exercises with physical therapy. I think she would benefit from asking physical therapy to give her some stretches to do after her neck exercises to make sure that it can loosen the neck muscles. In addition to this she can try and use Wynfiqb-yzjitag-yqgrdoml (like Excedrin Migraine) for abortive therapy when the headaches start to see if this helps. We also discussed she could try getting a TENS unit which may be beneficial for the tightness in her neck and to keep her from getting tension headaches Fibromyalgia 09/10/2024 Overview (09/10/2024): [employer] in [place] had worked her up for a number of rheumatologic conditions and was negative (SONYA negative), diagnosed with fibromyalgia. They were going to work her up for EDS but then she moved. -recently started on compounded Naltrexone 1.0 mg daily -coming off of gabapentin Assessment & Plan (11/05/2024 6:20 PM EDT): I am okay taking over the prescription for cyclobenzaprine 5 mg and low-dose naltrexone 1.5 mg for her fibromyalgia myalgia/chronic pain. I will go ahead and place a referral to rheumatology at [facility] [place] request to see if they can do further workup for EDS. If there is a definitive diagnosis then they also may be able to help manage her symptoms. Assessment & Plan (09/10/2024 12:34 PM EDT): Was previously on gabapentin, currently weaning off of this and going to low dose naltrexone. Previously worked up for a number of Rheumatologic conditions that were largely negative. Most recently suggested for work up of EDS (grandmother had this) but she moved away before she was able to get this done. She is interested in looking into this. Will have her follow-up to discuss work up and possible referrals. 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 Fred Butler in [place] -Marsha Snyder is sleep doctor in [place] who prescribes Assessment & Plan (09/10/2024 11:13 AM EDT): Managed by sleep doctor in [place], prescribed methylphenidate (long acting and as needed doses) PTSD (post-traumatic stress disorder) 09/10/2024 Healthcare maintenance 09/10/2024 Overview (09/10/2024): Colonoscopy: not yet DEXA scan: not yet LMP: 09/09/24; Regular, no heavy bleeding or cramping Last PAP: 2023, was normal; [facility] in [place] Mammogram: not yet Assessment & Plan (09/10/2024 12:32 PM EDT): Milana is a 29 year old female who is here to establish care. She was previously receiving primary care services in [place] but moved to [place] and has not been able to find any primary care providers in their area. Her has family near [place] so she figured this would work since we had availability. She is up to date on vaccines, will do COVID today, will wait until fall for Flu. Has had a number of labs done somewhat recently, and not due for any screening. Up to date on PAP. Getting new IUD placed in [place] soon. She is otherwise up to date and will work on getting us her other records. Offered follow-up with us in 1-2 months to go over some of her chronic conditions and help with further assessment. Dizziness 09/10/2024 Overview (11/05/2024): With episodes of tachycardia and hypotension per patient, -With able to get in with a press operator assistant which is great and is now taking ivabradine - [facility] cardiology Assessment & Plan (11/05/2024 6:21 PM EDT): With able to get in with a press operator assistant which is great and is now taking ivabradine Assessment & Plan (09/10/2024 10:57 AM EDT): Has been working with Dr. Riccardo Agudelo for dizziness and relation to tachycardia and postural hypotension but has not completed work up yet. Started on Metoprolol 12.5mg recently and feels it is helping. Will have her come back to clinic to discuss further work up needed and possible referrals, and she will work on getting records from previous PCP and Dr. Agudelo Avoidant-restrictive food intake disorder (ARFID ) 09/10/2024 Overview (09/10/2024): has been difficult, working with regional education manager in [place] on this, things are going better, but has intermittently has lost weight. Newer diagnosis, but always been picky. Davide, does not like meat Assessment & Plan (09/10/2024 11:14 AM EDT): Currently working with a regional education manager Attention deficit hyperactivity disorder (ADHD) 09/10/2024 Chronic pain of multiple joints 01/05/2023 Overview (09/10/2024): [employer] Professor in [place] had worked her up for a number of rheumatologic conditions and was negative (SONYA negative), diagnosed with fibromyalgia. They were going to work her up for EDS but then she moved. -recently started on compounded Naltrexone 1.0 mg daily -coming off of gabapentin Fatigue 01/04/2023 Overview (09/10/2024): Possibly related to fibromyalgia or hypersomnia Herpes simplex type 1 infection 05/08/2021 Anxiety 10/01/2020 Overview (09/10/2024): Previously diagnosed with this, believes was misdiagnosis and believes more related to POTs and/or fibromyalgia -does not have panic attacks Urinary incontinence in female 12/03/2016 Low serum vitamin D 12/16/2014 Overview (09/10/2024): 12/16/14: Vit D is 22 on 12/11/14. Labwork requested by and to be reviewed by her psychiatrist. [facility] Resolved Problems Problem Noted Date Diagnosed Date Resolved Date Nexplanon in place 11/11/2016 Overview (09/10/2024): Placed 11/11/16 Immunizations Immunization Administration Dates Next Due Covid-19 (Moderna Spikevax) 12yrs+ ([id number]) 09/10/2024 HPV 9-Valent (Gardasil 9) 04/13/2016 HPV, Quadrivalent (Gardasil) 10/31/2012 Hepatitis A Pediatric, Unspe cified Formulation 10/31/2012 Hepatitis A Pediatric/Adoles cent (Havrix, Vaqta) 04/03/2015 Hepatitis B Pediatric/Adoles cant (Engerix-B, Recombivax) 03/08/2006,01/05/2006,02/26/2005 Hib, Unspecified Formulation 11/27/2004 Hpv, Unspecified Formulation 04/03/2015 Influenza (FluBlok) Quadriva lent, Recombinant Preservative Free 06/11/2021 Influenza Quadrivalent, Pres ervative Free 04/13/2016 MMR Vaccine LIVE 04/21/2005,11/27/2004 Meningococcal ACWY Polysacch aride Conjugate (Menactra) 04/03/2015,10/31/2012 Meningococcal B Recombinant (Trumenba) 6 Polio Inactivated (IPOL) 04/21/2005,02/26/2005,0 11/27/2004 Tdap (Adacel, Boostrix) 10/07/2020,02/14,01/05/2006,07/02,04/21/2005 Varicella LIVE (Varivax) 01/05/2006,02/26/2005 Family History Medical History Relation Comments Attention Deficit Hyperactiv ity Disorder Father Skin Cancer Father sun related Breast Cancer Maternal Grandmother Lupus Maternal Grandmother Myocardial Infarction Maternal Grandmother Other Maternal Grandmother hypermobili ty syndrome and POTs Ovarian Cancer Maternal Grandmother Brain Cancer Mother non-genetic Cerebrovascular Accident Neg Hx Colorectal Cancer Neg Hx Thyroid Disease Neg Hx Relation Status Comments Father Maternal Grandmother Mother Social History Tobacco Use Types Packs/Day Years Used Date Smoking Tobacco: Former Cigarettes 1 12 2 011 - 2022 Smokeless Tobacco: Former Alcohol Use Standard Drinks/Week Comments Never 0 (1 standard drink = 0.6 oz pur e alcohol) B1300 Health Literacy Answer Date Recor ded How often do you need to hav e someone help you when you read instructions, pamphlets, or other written material from your doctor or pharmacy? Never 09/10/2024 [facility] Utilities Answer Date Recorded In the past 12 months has th e electric, gas, oil, or water company threatened to shut off services in your home? No 09/10/2024 Humiliation, Afraid, Rape, and Kick questionnair e Answer Date Recorded Within the last year, have y ou been afraid of your partner or ex-partner? No 09/10/2024 Within the last year, have y ou been humiliated or emotionally abused in other ways by your partner or ex-partner? No Within the last year, have y ou been kicked, hit, slapped, or otherwise physically hurt by your partner or ex-partner? No 09/10/2024 Within the last year, have y ou been raped or forced to have any kind of sexual activity by your partner or ex-partner? No 09/10/2024 Overall Financial Resource Strain (CARDIA) Answe r Date Recorded How hard is it for you to pa y for the very basics like food, housing, medical care, and heating? Somewhat hard 09/10/2024 Exercise Vital Sign Answer Date Recorde d On average, how many days pe r week do you engage in moderate to strenuous exercise (like a brisk walk)? 5 days 09/10/2024 On average, how many minutes do you engage in exercise at this level? 30 min 09/10/2024 Hunger Vital Sign Answer Date Recorded Within the past 12 months, y ou worried that your food would run out before you got the money to buy more. Sometimes true Within the past 12 months, t he food you bought just didn't last and you didn't have money to get more. Sometimes true PRAPARE - Transportation Answer Date Re corded In the past 12 months, has l ack of transportation kept you from medical appointments or from getting medications? No 08/28 In the past 12 months, has l ack of transportation kept you from meetings, work, or from getting things needed for daily living? No 09/10/2024 Housing Stability Vital Sign Answer Roger e Recorded In the last 12 months, was t here a time when you were not able to pay the mortgage or rent on time? No 09/10/2024 In the past 12 months, how m any times have you moved where you were living? 1 09/10/2024 At any time in the past 12 m [facility], were you homeless or living in a correction (including now)? No 09/10/2024 Education Answer Date Recorded What is the highest level of school you have completed or the highest degree you have received? Associate degree: academic program 09/10/2024 Comments Unknown Sex and Gender Information Value Date Recorded Sex Assigned at Female 09/10/2024 9:22 AM EDT Legal Sex Female 1:59 PM EST Gender Identity Female 09/10/2024 9:22 AM EDT Sexual Orientation Straight 09/10/2024 9: 22 AM EDT Last Filed Vital Signs Vital Sign Reading Time Taken Comments Blood Pressure 113/69 11/05/2024 11:18 AM EDT Pulse 64 11/05/2024 11:18 AM EDT Temperature 36.1 C (97 F) 11/05/2024 11:18 AM EDT Respiratory Rate 17 11/05/2024 11:18 AM EDT Oxygen Saturation 99% 11/05/2024 11:18 AM EDT Inhaled Oxygen Concentration - - Weight 54.9 kg (121 lb) 11/05/2024 11:18 AM EDT Height 160 cm (5' 3 ) 11/05/2024 11:18 AM EDT Body Mass Index 21.43 11/05/2024 11:18 AM EDT Plan of Treatment Health Maintenance Due Date Last Done Comments Covid-19 Vaccine (2024- season) 2025 09/10/2024, 06/11/2021, 11/21/2020, Additional history exists Influenza (Flu) vaccine (1 of 1 - Influenza standard series) 01/28/2025 06/11/2021, 04/13/2016 PAP Smear 07/28/2026 07/29/2023 (Outs cony per patient (enter details in comments)) Tetanus/Diphtheria/Pertuss is Vaccines (6 - Td or Tdap) 10/07/2030 10/07/2020, 02/15/2008, 01/05/2006, Additional history exists Hepatitis B vaccine (0-59 yrs) and Risk Completed 03/08/2006, 01/05/2006, 02/26/2005 HPV vaccine Completed 04/13/2016, 09/2014, 10/31/2012 Hepatitis C Screening Addressed 05/30/2023 (Outside per patient (enter details in comments)) Overridden with the intention of not completing the topic HIV screen Completed 11/05/2024, 05/2023 (Outside per patient (enter details in comments)) Procedures Procedure Name Priority Date/Time Associated Diagnosis Comments HIV SCREEN, 4TH GENERATION PERFORMABLE Routine 11/05/2024 12:56 PM EDT Fever of unknown origin (FUO) from Last 3 Months or Most Recently Relevant to Health Maintenance Results * HIV Screen, 4th Generation ([facility]P/APD/[facility]) (11/05/2024 12:56 PM EDT) HIV Ab/Ag Screen Negative Negative 11/05/2024 5:21 PM EDT [facility] Comment:Low Risk of HIV Infe ction. Blood VENOUS BLOOD SPECIMEN / Unknown Venipuncture / Unknown 11/05/2024 12:56 PM EDT 11/05/2024 12:56 PM EDT Narrative [facility] - 11/05/2024 5:21 PM EDT This 4th Generation HIV test screens for the presence of the HIV-1 p24 antigen as well as antibodies reactive against HIV-1 and HIV-2. A negative screen does not rule out an acute HIV infection. If acute HIV infection is suspected testing should be repeated in 2 - 3 weeks or HIV nucleic acid testing performed. us Sal Ku ROADWAY DESIGNER CHEMISTRY ORDERABLES Final Result [facility] [place] [address] [place] [address] from Last 3 Months or Most Recently Relevant to Health Maintenance Insurance [employer] Care Teams Pocket Machine Operator Relationship Specialty Start Date End Date Sal Ku APRN [facility] [address] [address] PCP - General Family Medicine 07/24/24
[2025-05-03 13:16] VITALS: BP 132/66; PULSE 78; RESP 20; TEMP 36.4; O2SAT 99
== END 2025-05-03 13:17 | disposition home or self-care (01) ==
PROVIDERS: Emergency Provider Emergency Medicine; PCP Nurse Practitioner Family
DX: J02.0 Streptococcal pharyngitis (principal); Z79.899 Other long term (current) drug therapy
CPT/HCPCS: 80053; 84702; 85025; 87651; 99283